=== PATIENT | male | born 1940 | race American Indian/Alaskan Native ===

== ENCOUNTER 2017-10-21 09:23 | Outpatient (CLI) | payer MEDICARE ==
[2017-10-21 10:28] LABS: Blood Urea Nitrogen 17 mg/dL (9-20)
--- NOTE | 2017-10-21 15:12 | Nuclear Medicine Report ---
Bone scan: Prostate cancer. Comparison made to prior exam in April 2013. Following injection of radionuclide whole body imaging is approximately 3 hours. Increased radiotracer is accumulated in the right kidney compared to the left with significant activity in the bladder. There is a relatively good bone to background ratio. There is faint activity identified at the sternomanubrial junction and along the inferior spine unchanged from prior exam. A previously seen focal area of activity at the right T12 costovertebral junction is no longer identified. There is diffuse inhomogeneous uptake of activity in the hemithoraces bilaterally which is similar to the uptake identified on the prior exam. No other significant findings. Impressions: 1. There are no osseous changes to indicate metastatic bone disease. 2. Abnormal pulmonary uptake most likely secondary to the chronic underlying pulmonary disease.
--- NOTE | 2017-10-22 08:26 | Cat Scan Report ---
CT CHEST WITH CONTRAST: HISTORY: Malignant neoplasm of prostate. COMPARISON: 09/12/17 CT chest without contrast. TECHNIQUE: Helical CT in 1.25mm intervals following IV contrast. Sagittal and coronal reformatted images. FINDINGS: Thyroid gland: Normal size. 1 cm left thyroid lobe hypodensity is unchanged and probably represents a cyst. Tracheobronchial tree: Normal. Esophagus: Normal. Heart: Normal. Pericardium: Normal. Mediastinum: No mass or adenopathy is appreciated. Lung [place]: Diffuse bilateral interstitial reticulonodular infiltrates have not significantly changed since 09/12/17. No areas of consolidation have developed. No discrete pulmonary nodule. There has been minimal progression of disease since the CT chest dated 06/29/13. This is most consistent with chronic interstitial lung disease. Considerations include sarcoidosis, pneumoconioses, and other etiologies. Lymphangitic spread of tumor is thought less likely. Pleural Spaces: Normal. Musculoskeletal: The bony structures are demineralized with diffuse degenerative changes throughout the spine. No fracture or suspicious blastic bony lesion is identified. IMPRESSION: No significant change is demonstrated since 09/12/17 exam. There are diffuse bilateral reticular nodular infiltrates most consistent with chronic interstitial lung disease. Please see above. No convincing evidence for metastatic disease to the chest.
--- NOTE | 2017-10-22 08:33 | Cat Scan Report ---
CT ABDOMEN PELVIS WITH CONTRAST: HISTORY: Malignant neoplasm of prostate. COMPARISON: 10/20/16. TECHNIQUE: Helical CT in 1.25mm intervals following IV contrast. Sagittal and coronal reconstructions. FINDINGS: Liver: No hepatic mass or advanced parenchymal disease. Biliary system: Moderate to severe diffuse biliary dilatation is again demonstrated. The common bile duct is dilated up to 1.6 cm in diameter. No obvious mass or calcified gallstone in the common bile duct is identified. This could represent a distal common bile duct stricture or ampullary stenosis. Please correlate with the patient and consider further imaging with ERCP or MRCP. Pancreas: Normal. The pancreatic duct is within normal limits. Spleen: Normal. Kidneys/ureters/bladder: The left kidney and collecting system are within normal limits. There are multiple cysts in the inferior right kidney with the largest measuring 4.0 cm. These appear to represent Bosniak class I and class II cysts. The right ureter and bladder are unremarkable. Adrenal glands: Normal right adrenal gland. Calcifications in the left adrenal gland are identified which could represent previous hemorrhage or other insult. No suspicious mass has developed. This is unchanged. Aorta: Normal. Intestines: There is mild fecal retention. No obvious obstruction, inflammation or mass. Appendix: Not confidently identified, correlate with surgical history. Pelvic viscera: Normal. Ascites: None. Adenopathy: None. Musculoskeletal: The bony structures are demineralized with diffuse degenerative changes particularly throughout the thoracolumbar spine. No compression deformity or malalignment. No suspicious blastic bony lesion. IMPRESSION: No evidence for metastatic disease to the abdomen or pelvis. Diffuse biliary dilatation which is essentially unchanged. Please see above. Right renal cysts, unchanged. Mild fecal retention.
== END 2017-10-21 09:24 | disposition home or self-care (01) ==
LOC: NM 09:23
PROVIDERS: ATTEND Internal Medicine Hematology
DX: C61 Malignant neoplasm of prostate (principal); N28.1 Cyst of kidney, acquired; E27.8 Other specified disorders of adrenal gland; R91.8 Other nonspecific abnormal finding of lung field; K59.00 Constipation, unspecified; M47.895 Other spondylosis, thoracolumbar region
CPT/HCPCS: 36415; 71260; 74177; 78306; 82565; 84520; A9503; Q9967

== ENCOUNTER 2018-12-01 09:14 | Outpatient (CLI) | payer MEDICARE ==
--- NOTE | 2018-12-01 10:45 | Cat Scan Report ---
CT ABDOMEN PELVIS WITHOUT CONTRAST: HISTORY: Malignant neoplasm of prostate. COMPARISON: 03/30/18 CT abdomen pelvis with contrast. TECHNIQUE: Helical CT in 1.25mm intervals without IV contrast. Sagittal and coronal reconstructions. FINDINGS: Lung bases: There are numerous calcified granulomas with mild surrounding scarring at both lung bases. This appears unchanged. Liver: Normal. Biliary system: Diffuse biliary dilatation is again noted and unchanged. A few small gallstones are suspected in the fundus of the gallbladder. Pancreas: Normal. Spleen: Normal. Kidneys/ureters/bladder: Scattered right renal cysts are stable in size and number. No left renal lesion. The collecting systems and bladder are unremarkable. The prostate gland is normal size. Adrenal glands: Normal. Aorta: Normal. Intestines: Within normal limits given no oral contrast was administered. Appendix: Normal. Ascites: None. Adenopathy: None. Musculoskeletal: The bony structures are demineralized with moderate degenerative change. No suspicious bony lesions or fracture is identified. IMPRESSION: No evidence for metastatic disease to the abdomen or pelvis. Chronic granulomatous disease at the lung bases. Diffuse biliary dilatation and mild cholelithiasis which is unchanged.
--- NOTE | 2018-12-01 14:02 | Nuclear Medicine Report ---
BONE SCAN: History: Malignant neoplasm of prostate. Comparison: Bone scan dated 03/30/18. CT abdomen and pelvis without contrast performed the same day. After injection of isotope, gamma camera imaging of the bony system was done. There is mild diffuse pulmonary uptake which is unchanged since the previous exam. This appears to be secondary to chronic granulomatous disease seen on CT. There is a normal uptake of isotope throughout the bony structures without areas of significantly increased or decreased uptake. Normal uptake in the urinary system is seen. IMPRESSION: Negative bone scan. No evidence for bony metastasis. No change since 03/30/18.
== END 2018-12-01 09:15 | disposition home or self-care (01) ==
LOC: NM 09:14 → EDBD 09:14 → NM 09:15
PROVIDERS: ATTEND Urology
DX: C61 Malignant neoplasm of prostate (principal); D71 Functional disorders of polymorphonuclear neutrophils; I25.10 Atherosclerotic heart disease of native coronary artery without angina pectoris; I10 Essential (primary) hypertension; Z72.89 Other problems related to lifestyle
CPT/HCPCS: 74176; 78306; A9503

== ENCOUNTER 2020-04-25 18:05 | Inpatient (IN) | payer MEDICAID, MEDICARE ==
--- NOTE | 2020-04-25 19:04 | Emergency Department Report ---
HPI - General PUI?: Yes Time Seen by Provider: 04/25/20 18:37 - HPI HPI: Room 23 The patient is a 79-year-old male sent from [facility] for hypoxia. EMS transfer forms just states "shortness of breath." The patient does not answer questions. Patient occasionally makes eye contact but does not respond verbally. 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) Hx Tuberculosis: No Additional medical history: prostate CA - Surgical History Past Surgical History?: No - Family History Family history: no significant - Social History Smoking Status: Unknown if ever smoked - Medications Home Medications: Home Medications Medication Instructions Recorded Confirmed Last Taken Type Potassium Chloride [Klor-Con 10] 1 tab PO DAILY 04/14/14 03/30/18 03/29/18 History 10 meq Furosemide [Lasix TAB] 20 mg PO QDAY 09/12/17 03/30/18 03/29/18 History 20 mg lisinopriL [Prinivil] 5 mg PO QDAY 09/12/17 03/30/18 03/29/18 History 5 mg levoFLOXacin [Levaquin TAB] 500 mg PO QDAY #5 tablet 09/16/17 03/30/18 03/29/18 Rx 500 mg Tamsulosin [Flomax] 0.4 mg PO QDAY 03/30/18 03/30/18 03/29/18 History 0.4mg ED Review of Systems ROS: Stated complaint: LOW O2 SATURATION Other details as noted in HPI Comment: Unobtainable due to pts medical conditions (Patient not answering questions) Constitutional: no symptoms reported Respiratory: no symptoms reported Endocrine: no symptoms reported Physical Exam - Physical Exam Vital Signs: Vital Signs 04/25/20 18:44 Pulse Rate 71 Respiratory 16 Rate Blood Pressure 103/60 [Right] O2 Sat by Pulse 96 Oximetry Physical Exam: GENERAL: The patient is well-developed well-nourished male sitting on stretcher not appearing to be in acute distress. Patient does not answer questions HEENT: Normocephalic. Atraumatic. Extraocular motions are intact. Patient has moist mucous membranes. NECK: Supple. Trachea midline CHEST/LUNGS: Clear to auscultation. There is no respiratory distress noted. HEART/CARDIOVASCULAR: Regular. There is no tachycardia. There is no gallop rub or murmur. ABDOMEN: Abdomen is soft, nontender. Patient has normal bowel sounds. There is no abdominal distention. SKIN: There is no rash. There is no edema. There is no diaphoresis. NEURO: The patient is awake and occasionally makes eye contact but does not respond verbally. The patient is not cooperative with neurologic exam. MUSCULOSKELETAL: There is no evidence of acute injury. ED Course Vital Signs 04/25/20 18:44 Pulse Rate 71 Respiratory 16 Rate Blood Pressure 103/60 [Right] O2 Sat by Pulse 96 Oximetry ED Medical Decision Making - Lab Data Result diagrams: 04/25/20 19:17 04/25/20 19:17 Laboratory Tests 04/25/20 04/25/20 04/25/20 19:17 19:17 19:17 WBC 5.1 RBC 3.50 L Hgb 11.7 L Hct 34.5 L MCV 99 H MCH 34 H MCHC 34 RDW 14.0 Plt Count 295 Lymph % (Auto) 13.6 [place] % (Auto) 7.4 H Eos % (Auto) 0.1 Baso % (Auto) 0.2 Lymph # 0.7 L [place] # 0.4 Eos # 0.0 Baso # 0.0 Seg Neutrophils % 78.7 H Seg Neutrophils # 4.0 D-Dimer 7654.83 H Sodium 146 H Potassium 4.1 Chloride 109.3 H Carbon Dioxide 20 L Anion Gap 21 BUN 77 H Creatinine 2.7 H Estimated GFR 28 BUN/Creatinine Ratio 29 Glucose 106 H Calcium 9.7 Ferritin Total Bilirubin 3.40 H AST 74 H ALT 48 Alkaline Phosphatase 610 H Lactate Dehydrogenase Total Creatine Kinase 65 CK-MB (CK-2) 1.4 CK-MB (CK-2) Rel Index 2.1 Troponin T < 0.010 C-Reactive Protein NT-Pro-B Natriuret Pep 244.7 Total Protein 8.2 Albumin 2.8 L Albumin/Globulin Ratio 0.5 04/25/20 04/25/20 19:17 19:17 WBC RBC Hgb Hct MCV MCH MCHC RDW Plt Count Lymph % (Auto) [place] % (Auto) Eos % (Auto) Baso % (Auto) Lymph # [place] # Eos # Baso # Seg Neutrophils % Seg Neutrophils # D-Dimer Sodium Potassium Chloride Carbon Dioxide Anion Gap BUN Creatinine Estimated GFR BUN/Creatinine Ratio Glucose 106 H Calcium Ferritin 658.6 H Total Bilirubin AST ALT Alkaline Phosphatase Lactate Dehydrogenase 421 H Total Creatine Kinase CK-MB (CK-2) CK-MB (CK-2) Rel Index Troponin T C-Reactive Protein 12.40 H NT-Pro-B Natriuret Pep Total Protein Albumin Albumin/Globulin Ratio - Radiology Data Radiology results: report reviewed (Chest x-ray), image reviewed (Chest x-ray) interpreted by me: Chest [id number] diffuse opacities. No pneumothorax. No foreign body seen [facility] [address] [place] [address] XRay Report Signed Patient: MAX HUSTON MR#: [id number] : 1940 A cct:[id number] Age/Sex: 79 / M ADM Date: 04/25/20 Loc: ED Attending Dr: Ordering Physician: POLLY REYNA MD Date of Service: 04/25/20 Procedure(s): XR chest 1V ap Accession Number(s): [id number] cc: POLLY REYNA MD Fluoro Time In Minutes: CHEST 1 VIEW 04/25/2020 8:08 PM INDICATION / CLINICAL INFORMATION: Hypoxia. COMPARISON: CT chest dated 03/30/2018 FINDINGS: SUPPORT DEVICES: None. HEART / MEDIASTINUM: Stable. LUNGS / PLEURA: Diffuse bilateral pulmonary infiltrates are not significantly changed from 2018. No new focal airspace consolidation is identified. No pneumothorax. ADDITIONAL FINDINGS: No significant additional findings. IMPRESSION: Diffuse bilateral pulmonary infiltrates are stable from 2018. No new focal airspace consolidation is seen. Signer Name: David Gorman MD Signed: 04/25/2020 9:23 PM Workstation Name: [id number] Transcribed By: SS Dictated By: DAVID GORMAN Electronically Authenticated By: DAVID GORMAN Signed Date/Time: 04/25/202122 DD/ 19 TD/TT: - Differential Diagnosis Pneumonia, COVID-19, pleural effusion, CHF, pulmonary edema Critical care attestation.: If time is entered above; I have spent that time in minutes in the direct care of this critically ill patient, excluding procedure time. ED Disposition Clinical Impression: Shortness of breath, Suspected COVID-19 virus infection Disposition: DC09 OP ADMIT IP TO THIS HOSP Is pt being admited?: Yes Does the pt Need Aspirin: No Condition: Fair Time of Disposition: 22:40 (Hospitalist notified (Dr Carbajal))
[2020-04-25 20:12] LABS: Basophils % (Auto) 0.2 % (0.0-1.8); Eosinophils % (Auto) 0.1 % (0.0-4.3); Hematocrit 34.5 % (35.5-45.6); Hemoglobin 11.7 gm/dl (11.8-15.2); Lymphocytes # (Auto) 0.7 K/mm3 (1.2-5.4); Lymphocytes % (Auto) 13.6 % (13.4-35.0); Mean Corpuscular HGB Conc 34 % (32-34); Mean Corpuscular Volume 99 fl (84-94); Monocytes # (Auto) 0.4 K/mm3 (0.0-0.8); Monocytes % (Auto) 7.4 % (0.0-7.3); Platelet Count 295 K/mm3 (140-440)
[2020-04-25 20:32] LABS: Creatine Kinase MB 1.4 ng/mL (0.0-4.0)
[2020-04-25 20:35] LABS: Alanine Aminotransferase 48 units/L (7-56); Albumin 2.8 g/dL (3.9-5); BUN/Creatinine Ratio 29; Blood Urea Nitrogen 77 mg/dL (9-20); Calcium 9.7 mg/dL (8.4-10.2); Hemolysis Index 5
[2020-04-25 20:36] LABS: C-Reactive Protein 12.4 mg/dL (0.00-1.30)
--- NOTE | 2020-04-25 21:27 | XRay Report ---
CHEST 1 VIEW 04/25/2020 8:08 PM INDICATION / CLINICAL INFORMATION: Hypoxia. COMPARISON: CT chest dated 03/30/2018 FINDINGS: SUPPORT DEVICES: None. HEART / MEDIASTINUM: Stable. LUNGS / PLEURA: Diffuse bilateral pulmonary infiltrates are not significantly changed from 2018. No n ew focal airspace consolidation is identified. No pneumothorax. ADDITIONAL FINDINGS: No significant additional findings. IMPRESSION: Diffuse bilateral pulmonary infiltrates are stable from 2018. No new focal airspace consolidation is seen. Signer Name: Boris Gorman MD Signed: 04/25/2020 9:23 PM Workstation Name: [id number]
[2020-04-25] MEDS ORDERED: cefTRIAXone/NS 1 GM/50 ML 1 GM/50 ML BAG IV ONE (22:08)
[2020-04-25 22:29] LABS: ABG Base Excess -2.2 mmol/L (-2.0-3.0); ABG HCO3 21.4 mmol/L (20.0-26.0); ABG Methemoglobin 0.4 % (0.0-1.5); ABG Oxygen Saturation 97.7 % (95.0-99.0); ABG PCO2 33.2 mm Hg; ABG PH 7.427 pH Units (7.350-7.450); ABG PO2 99.9 mm Hg (80.0-90.0)
[2020-04-25] MEDS ORDERED: DEXTROSE 50% IN WATER (25GM) 50 ML SYRINGE IV PRN (23:07)
[2020-04-25] MEDS ORDERED: SODIUM CHLORIDE 0.9% 1000 ML 1,000 ML IV SCH (23:15)
[2020-04-26] MEDS: HEPARIN 5,000 UNIT/1 ML VIAL SUB-Q SCH ×3 (00:33→22:23)
[2020-04-26 06:19] LABS: Calcium 9.2 mg/dL (8.4-10.2)
--- NOTE | 2020-04-26 07:19 | History and Physical Report ---
History of Present Illness Date of examination: 04/26/20 Date of admission: 04/25/20 22:13 Chief complaint: SHORTNESS OF BREATH History of present illness: 79 year old male brought from a longterm because of shortness of breath. Patient is non communicative and there was no history of fever, chills, cough, chest pain nausea or vomiting. Patient's evaluation in the Emergency Room shows elevated markers for COVID -19 Past History Past Medical History: diabetes, hypertension, renal failure, seizures, other (CONVERSION DISORDER, PROSTATE CANCER) Past Surgical History: No surgical history Social history: no significant social history Family history: no significant family history Medications and Allergies Allergies Allergy/AdvReac Type Severity Reaction Status Date / Time No Known Allergies Allergy Verified 04/14/14 11:39 Home Medications Medication Instructions Recorded Confirmed Last Taken Type Potassium Chloride [Klor-Con 10] 1 tab PO DAILY 04/14/14 03/30/18 03/29/18 History 10 meq Furosemide [Lasix TAB] 20 mg PO QDAY 09/12/17 03/30/18 03/29/18 History 20 mg lisinopriL [Prinivil] 5 mg PO QDAY 09/12/17 03/30/18 03/29/18 History 5 mg levoFLOXacin [Levaquin TAB] 500 mg PO QDAY #5 tablet 09/16/17 03/30/18 03/29/18 Rx 500 mg Tamsulosin [Flomax] 0.4 mg PO QDAY 03/30/18 03/30/18 03/29/18 History 0.4mg Active Meds: Active Medications Dextrose (D50w (25gm) Syringe) 0 ml IV Q30MIN PRN; Protocol PRN Reason: Hypoglycemia Heparin Sodium (Porcine) (Heparin) 5,000 unit SUB-Q Q12HR PAOLA Last Admin: 04/26/20 00:33 Dose: 5,000 unit Documented by: Sodium Chloride (Nacl 0.9% 1000 Ml) 1,000 mls @ 75 mls/hr IV DIRECT PAOLA Last Admin: 04/26/20 00:32 Dose: 75 mls/hr Documented by: Insulin Human Lispro (Humalog) 0 unit SUB-Q ACHS PAOLA; Protocol Review of Systems Constitutional: weakness, no weight loss, no weight gain, no fever, no chills, no sweats, no night sweats, no anorexia, no fatigue, no malaise, no lethargy Eyes: bilateral: other (NOM BILATERAL EYE SYMPTOMS) Ears, nose, mouth and throat: no ear pain, no ear discharge, no sore throat, no headache, no vertigo Cardiovascular: shortness of breath, no chest pain, no palpitations, no rapid/irregular heart beat, no syncope, no lightheadedness Respiratory: shortness of breath, no cough, no cough with sputum, no dyspnea on exertion, no congestion, no wheezing, no pleurisy, no pain, no pain on inspiration, no respiratory infections Gastrointestinal: no abdominal pain, no nausea, no vomiting, no diarrhea, no constipation, no change in bowel habits, no hematemesis, no early satiety, no heartburn, no indigestion Genitourinary Male: erectile dysfunction, no hematuria, no flank pain, no discharge, no urinary frequency, no urinary hesitancy, no nocturia, no incontinence Rectal: no pain Musculoskeletal: no neck stiffness, no neck pain, no shooting arm pain, no arm numbness/tingling, no low back pain, no shooting leg pain, no leg numbness/tingling, no morning stiffness, no muscle weakness, no muscle cramps, no myalgias, no atrophy Integumentary: no rash, no pruritis, no redness, no sores, no wounds, no jaundice, no boils, no growths, no depigmentation, no dryness, no hirsutism Neurological: no head injury, no paralysis, no weakness, no parathesias, no numbness, no tingling, no seizures, no vertigo, no headaches, no migraines, no change in speech, no change in mentation, no confusion Psychiatric: no anxiety, no depression Endocrine: no polyphagia, no polyuria, no nocturia, no excessive sweating Hematologic/Lymphatic: no easy bruising, no easy bleeding Exam - Constitutional Vitals: Temp Pulse Resp BP Pulse Ox 97.5 F L 90 16 93/47 90 04/26/20 06:20 04/26/20 06:20 04/26/20 06:20 04/26/20 06:20 04/26/20 06:20 General appearance: Present: no acute distress - EENT Eyes: Present: PERRL, EOM intact ENT: hearing intact - Neck Neck: Present: supple, normal ROM - Respiratory Respiratory effort: normal - Extremities Extremities: no ischemia, No edema - Abdominal General gastrointestinal: Present: soft, non-tender, non-distended. Absent: tender, distended, rigid, mass Male genitourinary: Present: deferred - Rectal Rectal Exam: deferred - Integumentary Integumentary: Present: clear, warm, dry - Musculoskeletal Musculoskeletal: strength equal bilaterally - Psychiatric Psychiatric: appropriate mood/affect HEART Score - HEART Score Risk factors: 1-2 risk factors Troponin: Troponin T < 0.010 ng/mL (0.00-0.029) 04/25/20 19:17 Troponin: < normal limit - Critical Actions Critical Actions: 0-3 pts:0.9-1.7%risk of adverse cardiac event.Candidate for discharge Results - Labs CBC & Chem 7: 04/25/20 19:17 04/26/20 05:11 Labs: Laboratory Last Values WBC 5.1 K/mm3 (4.5-11.0) 04/25/20 19:17 RBC 3.50 M/mm3 (3.65-5.03) L 04/25/20 19:17 Hgb 11.7 gm/dl (11.8-15.2) L 04/25/20 19:17 Hct 34.5 % (35.5-45.6) L 04/25/20 19:17 MCV 99 fl (84-94) H 04/25/20 19:17 MCH 34 pg (28-32) H 04/25/20 19:17 MCHC 34 % (32-34) 04/25/20 19:17 RDW 14.0 % (13.2-15.2) 04/25/20 19:17 Plt Count 295 K/mm3 (140-440) 04/25/20 19:17 Lymph % (Auto) 13.6 % (13.4-35.0) 04/25/20 19:17 [place] % (Auto) 7.4 % (0.0-7.3) H 04/25/20 19:17 Eos % (Auto) 0.1 % (0.0-4.3) 04/25/20 19:17 Baso % (Auto) 0.2 % (0.0-1.8) 04/25/20 19:17 Lymph # 0.7 K/mm3 (1.2-5.4) L 04/25/20 19:17 [place] # 0.4 K/mm3 (0.0-0.8) 04/25/20 19:17 Eos # 0.0 K/mm3 (0.0-0.4) 04/25/20 19:17 Baso # 0.0 K/mm3 (0.0-0.1) 04/25/20 19:17 Seg Neutrophils % 78.7 % (40.0-70.0) H 04/25/20 19:17 Seg Neutrophils # 4.0 K/mm3 (1.8-7.7) 04/25/20 19:17 D-Dimer 7654.83 ng/mlDDU (0-234) H 04/25/20 19:17 ABG pH 7.427 pH Units (7.350-7.450) 04/25/20 22:00 ABG pCO2 33.2 mm Hg 04/25/20 22:00 ABG pO2 99.9 mm Hg (80.0-90.0) H 04/25/20 22:00 ABG HCO3 21.4 mmol/L (20.0-26.0) 04/25/20 22:00 ABG O2 Saturation 97.7 % (95.0-99.0) 04/25/20 22:00 ABG O2 Content 17.1 (0.0-44) 04/25/20 22:00 ABG Base Excess -2.2 mmol/L (-2.0-3.0) L 04/25/20 22:00 ABG Hemoglobin 12.6 gm/dl (14.0-18.0) L 04/25/20 22:00 ABG Carboxyhemoglobin 1.7 % (0.0-5.0) 04/25/20 22:00 ABG Methemoglobin 0.4 % (0.0-1.5) 04/25/20 22:00 Oxyhemoglobin 95.6 % (95.0-99.0) 04/25/20 22:00 FiO2 21 % 04/25/20 22:00 Sodium 150 mmol/L (137-145) H 04/26/20 05:11 Potassium 3.7 mmol/L (3.6-5.0) 04/26/20 05:11 Chloride 113.1 mmol/L (98-107) H 04/26/20 05:11 Carbon Dioxide 23 mmol/L (22-30) 04/26/20 05:11 Anion Gap 18 mmol/L 04/26/20 05:11 BUN 74 mg/dL (9-20) H 04/26/20 05:11 Creatinine 2.0 mg/dL (0.8-1.3) H 04/26/20 05:11 Estimated GFR 39 ml/min 04/26/20 05:11 BUN/Creatinine Ratio 37 % 04/26/20 05:11 Glucose 106 mg/dL (75-100) H 04/26/20 05:11 Calcium 9.2 mg/dL (8.4-10.2) 04/26/20 05:11 Ferritin 658.6 ng/mL (30.0-300.0) H 04/25/20 19:17 Total Bilirubin 3.40 mg/dL (0.1-1.2) H 04/25/20 19:17 AST 74 units/L (5-40) H 04/25/20 19:17 ALT 48 units/L (7-56) 04/25/20 19:17 Alkaline Phosphatase 610 units/L (35-129) H 04/25/20 19:17 Lactate Dehydrogenase 421 units/L (91-180) H 04/25/20 19:17 Total Creatine Kinase 65 units/L (55-170) 04/25/20 19:17 CK-MB (CK-2) 1.4 ng/mL (0.0-4.0) 04/25/20 19:17 CK-MB (CK-2) Rel Index 2.1 (0-4) 04/25/20 19:17 Troponin T < 0.010 ng/mL (0.00-0.029) 04/25/20 19:17 C-Reactive Protein 12.40 mg/dL (0.00-1.30) H 04/25/20 19:17 NT-Pro-B Natriuret Pep 244.7 pg/mL (0-900) 04/25/20 19:17 Total Protein 8.2 g/dL (6.3-8.2) 04/25/20 19:17 Albumin 2.8 g/dL (3.9-5) L 04/25/20 19:17 Albumin/Globulin Ratio 0.5 % 04/25/20 19:17 Microbiology: Microbiology 04/25/20 19:31 Peripheral/Venous Blood Culture - Preliminary Culture in Progress 04/25/20 19:17 Peripheral/Venous Blood Culture - Preliminary Culture in Progress Mendoza/IV: Voiding Method Incontinent IV Catheter Type [Right INT / Saline Lock Forearm] Assessment and Plan - Patient Problems (1) Hypoxia Current Visit: Yes Status: Acute Plan to address problem: 1. OXYGEN BY NASAL CANNULA 2. ALBUTEROL NEBULIZER PRN SOB (2) Suspected COVID-19 virus infection Current Visit: Yes Status: Acute Plan to address problem: 1 COVID -19 TESTING 2. DROPLET AND CONTACT ISOLATION (3) Renal insufficiency Current Visit: No Status: Acute Plan to address problem: 1. BMP 2. NEPHROLOGY CONSULT 3. I.V FLUID
[2020-04-26] MEDS ORDERED: ALBUTEROL 2.5 MG/3 ML NEBU IH PRN (07:30)
[2020-04-26] MEDS ORDERED: INSULIN REGULAR, HUMAN 100 UNIT/ML 3ML VIAL SUB-Q SCH (07:30)
--- NOTE | 2020-04-26 08:29 | Progress Note ---
Assessment and Plan Assessment and plan: --COVID-19 test negative --Bilateral pneumonia: Empiric antibiotics, follow cultures --Hypotension; Rigorous IV hydration Increase oral intake If no improvement will try Midrin --Type 2 diabetes mellitus; Accu-Chek sliding scale coverage ADA diet and insulin as needed --Acute kidney injury; Vasomotor nephropathy Gentle hydration, monitor renal function Avoid nephrotoxins, nephrology consult if needed --Severe protein calorie malnutrition; cachexia Patient supplements, nutrition consult --Hypernatremia: Probably severe dehydration Change IV fluids from normal saline to D5W Closely monitor electrolytes --DVT prophylaxis; Heparin We will closely monitor the patient and adjust management as needed Plan of care reviewed with the patient and his nurse History Interval history: I have seen and examined the patient at the bedside today Isolation precautions PPE protocols observed Patient looks ill in mild distress Vital signs noted Hospitalist Physical - Constitutional Vitals: Temp Pulse Resp BP Pulse Ox 97.5 F L 90 16 93/47 90 04/26/20 06:20 04/26/20 06:20 04/26/20 06:20 04/26/20 06:20 04/26/20 06:20 General appearance: Present: mild distress, cachectic, disheveled - EENT Eyes: Present: PERRL, EOM intact - Neck Neck: Present: supple, normal ROM - Respiratory Respiratory effort: normal Respiratory: bilateral: diminished, rhonchi, negative: rales, wheezing - Cardiovascular Rhythm: regular Heart Sounds: Present: S1 & S2 - Extremities Extremities: no ischemia, No edema - Abdominal General gastrointestinal: soft, non-tender, non-distended, normal bowel sounds - Integumentary Integumentary: Present: clear, warm - Psychiatric Psychiatric: other (Confused) - Neurologic Neurologic: moves all extremities, other (Minimally communicative) HEART Score - HEART Score Risk factors: 1-2 risk factors Troponin: Troponin T < 0.010 ng/mL (0.00-0.029) 04/25/20 19:17 Troponin: < normal limit - Critical Actions Critical Actions: 0-3 pts:0.9-1.7%risk of adverse cardiac event.Candidate for discharge Results - Labs CBC & Chem 7: 04/25/20 19:17 04/26/20 05:11 Labs: Laboratory Last Values WBC 5.1 K/mm3 (4.5-11.0) 04/25/20 19:17 RBC 3.50 M/mm3 (3.65-5.03) L 04/25/20 19:17 Hgb 11.7 gm/dl (11.8-15.2) L 04/25/20 19:17 Hct 34.5 % (35.5-45.6) L 04/25/20 19:17 MCV 99 fl (84-94) H 04/25/20 19:17 MCH 34 pg (28-32) H 04/25/20 19:17 MCHC 34 % (32-34) 04/25/20 19:17 RDW 14.0 % (13.2-15.2) 04/25/20 19:17 Plt Count 295 K/mm3 (140-440) 04/25/20 19:17 Lymph % (Auto) 13.6 % (13.4-35.0) 04/25/20 19:17 [place] % (Auto) 7.4 % (0.0-7.3) H 04/25/20 19:17 Eos % (Auto) 0.1 % (0.0-4.3) 04/25/20 19:17 Baso % (Auto) 0.2 % (0.0-1.8) 04/25/20 19:17 Lymph # 0.7 K/mm3 (1.2-5.4) L 04/25/20 19:17 [place] # 0.4 K/mm3 (0.0-0.8) 04/25/20 19:17 Eos # 0.0 K/mm3 (0.0-0.4) 04/25/20 19:17 Baso # 0.0 K/mm3 (0.0-0.1) 04/25/20 19:17 Seg Neutrophils % 78.7 % (40.0-70.0) H 04/25/20 19:17 Seg Neutrophils # 4.0 K/mm3 (1.8-7.7) 04/25/20 19:17 D-Dimer 7654.83 ng/mlDDU (0-234) H 04/25/20 19:17 ABG pH 7.427 pH Units (7.350-7.450) 04/25/20 22:00 ABG pCO2 33.2 mm Hg 04/25/20 22:00 ABG pO2 99.9 mm Hg (80.0-90.0) H 04/25/20 22:00 ABG HCO3 21.4 mmol/L (20.0-26.0) 04/25/20 22:00 ABG O2 Saturation 97.7 % (95.0-99.0) 04/25/20 22:00 ABG O2 Content 17.1 (0.0-44) 04/25/20 22:00 ABG Base Excess -2.2 mmol/L (-2.0-3.0) L 04/25/20 22:00 ABG Hemoglobin 12.6 gm/dl (14.0-18.0) L 04/25/20 22:00 ABG Carboxyhemoglobin 1.7 % (0.0-5.0) 04/25/20 22:00 ABG Methemoglobin 0.4 % (0.0-1.5) 04/25/20 22:00 Oxyhemoglobin 95.6 % (95.0-99.0) 04/25/20 22:00 FiO2 21 % 04/25/20 22:00 Sodium 150 mmol/L (137-145) H 04/26/20 05:11 Potassium 3.7 mmol/L (3.6-5.0) 04/26/20 05:11 Chloride 113.1 mmol/L (98-107) H 04/26/20 05:11 Carbon Dioxide 23 mmol/L (22-30) 04/26/20 05:11 Anion Gap 18 mmol/L 04/26/20 05:11 BUN 74 mg/dL (9-20) H 04/26/20 05:11 Creatinine 2.0 mg/dL (0.8-1.3) H 04/26/20 05:11 Estimated GFR 39 ml/min 04/26/20 05:11 BUN/Creatinine Ratio 37 % 04/26/20 05:11 Glucose 106 mg/dL (75-100) H 04/26/20 05:11 POC Glucose 106 (70-105) H 04/26/20 08:00 Calcium 9.2 mg/dL (8.4-10.2) 04/26/20 05:11 Ferritin 658.6 ng/mL (30.0-300.0) H 04/25/20 19:17 Total Bilirubin 3.40 mg/dL (0.1-1.2) H 04/25/20 19:17 AST 74 units/L (5-40) H 04/25/20 19:17 ALT 48 units/L (7-56) 04/25/20 19:17 Alkaline Phosphatase 610 units/L (35-129) H 04/25/20 19:17 Lactate Dehydrogenase 421 units/L (91-180) H 04/25/20 19:17 Total Creatine Kinase 65 units/L (55-170) 04/25/20 19:17 CK-MB (CK-2) 1.4 ng/mL (0.0-4.0) 04/25/20 19:17 CK-MB (CK-2) Rel Index 2.1 (0-4) 04/25/20 19:17 Troponin T < 0.010 ng/mL (0.00-0.029) 04/25/20 19:17 C-Reactive Protein 12.40 mg/dL (0.00-1.30) H 04/25/20 19:17 NT-Pro-B Natriuret Pep 244.7 pg/mL (0-900) 04/25/20 19:17 Total Protein 8.2 g/dL (6.3-8.2) 04/25/20 19:17 Albumin 2.8 g/dL (3.9-5) L 04/25/20 19:17 Albumin/Globulin Ratio 0.5 % 04/25/20 19:17 Microbiology: Microbiology 04/25/20 19:31 Peripheral/Venous Blood Culture - Preliminary Culture in Progress 04/25/20 19:17 Peripheral/Venous Blood Culture - Preliminary Culture in Progress Mendoza/IV: Voiding Method Incontinent IV Catheter Type [Right INT / Saline Lock Forearm] Active Medications - Current Medications Current Medications: Generic Name Dose Route Start Last Admin Trade Name Freq PRN Reason Stop Dose Admin Albuterol 2.5 mg 04/26/20 07:30 Proventil IH Q4HRT PRN Shortness Of Breath Dextrose 0 ml 04/25/20 23:07 D50w (25gm) Syringe IV Q30MIN PRN Hypoglycemia Protocol Heparin Sodium (Porcine) 5,000 unit 04/25/20 23:00 04/26/20 00:33 Heparin SUB-Q 5,000 unit Q12HR PAOLA Administration Sodium Chloride 1,000 mls @ 75 mls/hr 04/25/20 23:15 04/26/20 00:32 Nacl 0.9% 1000 Ml IV 75 mls/hr DIRECT PAOLA Administration Insulin Human Lispro 0 unit 04/26/20 07:30 Humalog SUB-Q ACHS PAOLA Protocol
[2020-04-26] MEDS: INSULIN LISPRO 100 UNIT/ML VIAL 3 mL SUB-Q SCH ×4 (10:17→23:51)
--- NOTE | 2020-04-26 10:21 | Consultation ---
History of Present Illness - Reason for Consult Consult date: 04/26/20 acute renal failure - History of Present Illness 79 year old male brought [facility] a [facility] because of shortness of breath. Patient is non communicative and there was no history of fever, chills, cough, chest pain nausea or vomiting. Patient's evaluation in the Emergency Room shows elevated markers for COVID -19. currently on isolation, chart reviewed he was found to have elevated Cr and hypernatremia and renal consult was requested Past History Past Medical History: diabetes, hypertension, renal failure, seizures, other (CONVERSION DISORDER, PROSTATE CANCER) Past Surgical History: No surgical history Social history: no significant social history Family history: no significant family history Medications and Allergies Allergies Allergy/AdvReac Type Severity Reaction Status Date / Time No Known Allergies Allergy Verified 04/14/14 11:39 Home Medications Medication Instructions Recorded Confirmed Last Taken Type Potassium Chloride [Klor-Con 10] 1 tab PO DAILY 04/14/14 03/30/18 03/29/18 History 10 meq Furosemide [Lasix TAB] 20 mg PO QDAY 09/12/17 03/30/18 03/29/18 History 20 mg lisinopriL [Prinivil] 5 mg PO QDAY 09/12/17 03/30/18 03/29/18 History 5 mg levoFLOXacin [Levaquin TAB] 500 mg PO QDAY #5 tablet 09/16/17 03/30/18 03/29/18 Rx 500 mg Tamsulosin [Flomax] 0.4 mg PO QDAY 03/30/18 03/30/18 03/29/18 History 0.4mg Active Meds: Active Medications Albuterol (Proventil) 2.5 mg IH Q4HRT PRN PRN Reason: Shortness Of Breath Dextrose (D50w (25gm) Syringe) 0 ml IV Q30MIN PRN; Protocol PRN Reason: Hypoglycemia Heparin Sodium (Porcine) (Heparin) 5,000 unit SUB-Q Q12HR PAOLA Last Admin: 04/26/20 00:33 Dose: 5,000 unit Documented by: Sodium Chloride (Nacl 0.9% 1000 Ml) 1,000 mls @ 75 mls/hr IV DIRECT PAOLA Last Admin: 04/26/20 00:32 Dose: 75 mls/hr Documented by: Insulin Human Lispro (Humalog) 0 unit SUB-Q ACHS PAOLA; Protocol Review of Systems All systems: negative (worsening of SOB) Exam - Vital Signs Vital signs: Vital Signs Pulse Resp BP Pulse Ox 71 16 103/60 96 04/25/20 18:44 04/25/20 18:44 04/25/20 18:44 04/25/20 18:44 Results - Lab Results 04/25/20 19:17 04/26/20 05:11 Most recent lab results ABG pH 7.427 pH Units (7.350-7.450) 04/25/20 22:00 ABG pCO2 33.2 mm Hg 04/25/20 22:00 ABG pO2 99.9 mm Hg (80.0-90.0) H 04/25/20 22:00 ABG HCO3 21.4 mmol/L (20.0-26.0) 04/25/20 22:00 ABG O2 Saturation 97.7 % (95.0-99.0) 04/25/20 22:00 Calcium 9.2 mg/dL (8.4-10.2) 04/26/20 05:11 Assessment and Plan Hypoxia COVID-19 rule out acute renal failure appears to be secondary to prerenal azotemia Hypernatremia Cr is trending down, will switch IVF to 1/2 NS 125 cc/h for worsening hypernatremia urine lytes, protein and eos ordered renal US ordered renally dose meds strict I&O daily weight Avoid nephrotoxins Griffin Lockwood MD please call me if you have any questions [phone]
[2020-04-26] MEDS ORDERED: SODIUM CHLORIDE 0.45% 1000 ML 1,000 ML IV SCH (11:00)
--- NOTE | 2020-04-26 15:55 | Consultation ---
History of Present Illness - Reason for Consult Consult date: 04/26/20 - History of Present Illness 79-year-old man past medical history diabetes, hypertension, CKD, prostate cancer admitted from his longterm due to shortness of breath. Patient is baseline noncommunicative, especially history is obtained from the chart. Afebrile with a normal white count. COVID-19 testing negative. No cultures available for review. Procalcitonin elevated at 2.77. Imaging personally reviewed: Chest x-ray: Diffuse bilateral infiltrates stable from 2018. Past History Past Medical History: diabetes, hypertension, renal failure, seizures, other (CONVERSION DISORDER, PROSTATE CANCER) Past Surgical History: No surgical history Social history: no significant social history Family history: no significant family history Medications and Allergies Allergies Allergy/AdvReac Type Severity Reaction Status Date / Time No Known Allergies Allergy Verified 04/14/14 11:39 Home Medications Medication Instructions Recorded Confirmed Last Taken Type Potassium Chloride [Klor-Con 10] 1 tab PO DAILY 04/14/14 03/30/18 03/29/18 History 10 meq Furosemide [Lasix TAB] 20 mg PO QDAY 09/12/17 03/30/18 03/29/18 History 20 mg lisinopriL [Prinivil] 5 mg PO QDAY 09/12/17 03/30/18 03/29/18 History 5 mg levoFLOXacin [Levaquin TAB] 500 mg PO QDAY #5 tablet 09/16/17 03/30/18 03/29/18 Rx 500 mg Tamsulosin [Flomax] 0.4 mg PO QDAY 03/30/18 03/30/18 03/29/18 History 0.4mg Active Meds: Active Medications Albuterol (Proventil) 2.5 mg IH Q4HRT PRN PRN Reason: Shortness Of Breath Dextrose (D50w (25gm) Syringe) 0 ml IV Q30MIN PRN; Protocol PRN Reason: Hypoglycemia Heparin Sodium (Porcine) (Heparin) 5,000 unit SUB-Q Q12HR PAOLA Last Admin: 04/26/20 10:23 Dose: 5,000 unit Documented by: Sodium Chloride (Nacl 0.45% 1000 Ml) 1,000 mls @ 125 mls/hr IV DIRECT PAOLA Last Admin: 04/26/20 14:00 Dose: 125 mls/hr Documented by: Insulin Human Lispro (Humalog) 0 unit SUB-Q [facility]; Protocol Last Admin: 04/26/20 13:59 Dose: Not Given Documented by: Review of Systems ROS unobtainable: due to mental status Physical Examination - Physical Exam Narrative exam: Physical Exam: Constitutional: Noncommunicative, short of breath, stable Head, Ears, Nose: Normocephalic, atraumatic. External ears, nose normal Eyes: Conjunctivae/corneas clear. No icterus. No ptosis. Neck: Supple, no meningeal signs Oral: dentition fair, no thrush Cardiovascular: S1, S2 normal. Respiratory: Good air entry, clear to auscultation bilaterally GI: Soft, non-tender; bowel sounds normal. No peritoneal signs. Musculoskeletal: No pedal edema, no cyanosis. Skin: No rash or abscess Hem/Lymphatic: No palpable cervical or supraclavicular nodes. No lymphangitis Psych: Nonverbal Neurological: Nonverbal - Constitutional Vitals: Vital Signs Temp Pulse Resp BP Pulse Ox 97.9 F 91 H 18 86/46 91 04/26/20 11:27 04/26/20 11:03 04/26/20 11:27 04/26/20 11:27 04/26/20 11:27 Temperature -Last 24 Hours Temperature 97.9 F Temperature 98.5 F Temperature 97.5 F Temperature 98.3 F Results - Labs CBC & Chem 7: 04/25/20 19:17 04/26/20 05:11 Labs: Abnormal lab results 04/25/20 04/25/20 04/25/20 Range/Units 19:17 19:17 19:17 RBC 3.50 L (3.65-5.03) M/mm3 Hgb 11.7 L (11.8-15.2) gm/dl Hct 34.5 L (35.5-45.6) % MCV 99 H (84-94) fl MCH 34 H (28-32) pg [place] % (Auto) 7.4 H (0.0-7.3) % Lymph # 0.7 L (1.2-5.4) K/mm3 Seg Neutrophils % 78.7 H (40.0-70.0) % D-Dimer 7654.83 H (0-234) ng/mlDDU ABG pO2 (80.0-90.0) mm Hg ABG Base Excess (-2.0-3.0) mmol/L ABG Hemoglobin (14.0-18.0) gm/dl Sodium 146 H (137-145) mmol/L Chloride 109.3 H (98-107) mmol/L Carbon Dioxide 20 L (22-30) mmol/L BUN 77 H (9-20) mg/dL Creatinine 2.7 H (0.8-1.3) mg/dL Glucose 106 H (75-100) mg/dL POC Glucose (70-105) Ferritin (30.0-300.0) ng/mL Total Bilirubin 3.40 H (0.1-1.2) mg/dL AST 74 H (5-40) units/L Alkaline Phosphatase 610 H (35-129) units/L Lactate Dehydrogenase (91-180) units/L C-Reactive Protein (0.00-1.30) mg/dL Albumin 2.8 L (3.9-5) g/dL 04/25/20 04/25/20 04/25/20 Range/Units 19:17 19:17 22:00 RBC (3.65-5.03) M/mm3 Hgb (11.8-15.2) gm/dl Hct (35.5-45.6) % MCV (84-94) fl MCH (28-32) pg [place] % (Auto) (0.0-7.3) % Lymph # (1.2-5.4) K/mm3 Seg Neutrophils % (40.0-70.0) % D-Dimer (0-234) ng/mlDDU ABG pO2 99.9 H (80.0-90.0) mm Hg ABG Base Excess -2.2 L (-2.0-3.0) mmol/L ABG Hemoglobin 12.6 L (14.0-18.0) gm/dl Sodium (137-145) mmol/L Chloride (98-107) mmol/L Carbon Dioxide (22-30) mmol/L BUN (9-20) mg/dL Creatinine (0.8-1.3) mg/dL Glucose 106 H (75-100) mg/dL POC Glucose (70-105) Ferritin 658.6 H (30.0-300.0) ng/mL Total Bilirubin (0.1-1.2) mg/dL AST (5-40) units/L Alkaline Phosphatase (35-129) units/L Lactate Dehydrogenase 421 H (91-180) units/L C-Reactive Protein 12.40 H (0.00-1.30) mg/dL Albumin (3.9-5) g/dL 04/26/20 04/26/20 04/26/20 Range/Units 05:11 08:00 11:41 RBC (3.65-5.03) M/mm3 Hgb (11.8-15.2) gm/dl Hct (35.5-45.6) % MCV (84-94) fl MCH (28-32) pg [place] % (Auto) (0.0-7.3) % Lymph # (1.2-5.4) K/mm3 Seg Neutrophils % (40.0-70.0) % D-Dimer (0-234) ng/mlDDU ABG pO2 (80.0-90.0) mm Hg ABG Base Excess (-2.0-3.0) mmol/L ABG Hemoglobin (14.0-18.0) gm/dl Sodium 150 H (137-145) mmol/L Chloride 113.1 H (98-107) mmol/L Carbon Dioxide (22-30) mmol/L BUN 74 H (9-20) mg/dL Creatinine 2.0 H (0.8-1.3) mg/dL Glucose 106 H (75-100) mg/dL POC Glucose 106 H 112 H (70-105) Ferritin (30.0-300.0) ng/mL Total Bilirubin (0.1-1.2) mg/dL AST (5-40) units/L Alkaline Phosphatase (35-129) units/L Lactate Dehydrogenase (91-180) units/L C-Reactive Protein (0.00-1.30) mg/dL Albumin (3.9-5) g/dL Assessment and Plan Cultures: Blood culture 04/25/2020 pending COVID-19 negative A/P: 79-year-old man past medical history diabetes, hypertension, CKD, prostate cancer admitted with shortness of breath. #Bilateral pneumonia: Infiltrate stable from 2 years ago, however may have resolved and then returned or may have chronic infiltrates in the lungs. His procalcitonin is elevated, however he does have a level of chronic kidney disease. COVID testing is negative, as such would recommend treating empirically with antibiotics. #JOSE on CKD: Renally dose antibiotics #Diabetes: tight glycemic control for best outcomes. Recs: -Start ceftriaxone and azithromycin. Recommend 5 and 3 days respectively. -Can trend procalcitonin every few days to monitor for improvement. Thank you for the consult, we will continue to follow. Alli Alejo MD [facility] M: [phone] O: [phone] F: [phone]
[2020-04-26] MEDS ORDERED: cefTRIAXone/NS 2 GM/100 ML 2 GM/100 ML BAG IV SCH (16:00)
[2020-04-26 16:05] LABS: Bacteria,Urine 1+ /HPF (Negative); Bilirubin,Urine NEG (Negative); Blood,Urine MOD (Negative); Color,Urine Yellow (Yellow); Mucus,Urine FEW /HPF; Protein,Urine <15 mg/dL mg/dL (Negative); Urobilinogen,Urine < 2.0 mg/dL (<2.0)
[2020-04-26 16:08] LABS: Creatinine,Urine 73.5 mg/dL (0.1-20.0)
[2020-04-26 16:13] LABS: Creatinine,Urine 72.7 mg/dL (0.1-20.0); Protein/Creatinine Ratio,Urine 0.65
[2020-04-26] MEDS: AZITHROMYCIN 500 MG in SODIUM CHLORIDE 0.9% 250ML 250 ML IV SCH (17:59)
[2020-04-26] MEDS: DEXTROSE 5% IN WATER 1,000 ML IV SCH (22:47)
[2020-04-27] MEDS: DEXTROSE 5% IN WATER 1,000 ML IV SCH (06:32)
[2020-04-27] MEDS: INSULIN LISPRO 100 UNIT/ML VIAL 3 mL SUB-Q SCH ×4 (09:00→23:14)
[2020-04-27] MEDS: cefTRIAXone/NS 1 GM/50 ML 1 GM/50 ML BAG IV SCH (10:17)
[2020-04-27] MEDS: HEPARIN 5,000 UNIT/1 ML VIAL SUB-Q SCH ×2 (10:17→22:16)
--- NOTE | 2020-04-27 10:40 | Progress Note ---
Assessment and Plan Assessment and plan: --COVID-19 test negative 04/26/2020 --Hypokalemia/hypophosphatemia; Replenished with potassium phosphate IV Monitor electrolytes --Dysphagia/failed bedside swallow Will check speech and swallow evaluation Meanwhile we will start tube feeding Dobbhoff placement for tube feeds and medications Closely monitor, nutrition consult --Bilateral pneumonia: Empiric antibiotics, follow cultures ID following --Hypotension; Rigorous IV hydration Increase oral intake If no improvement will try Midrin --Type 2 diabetes mellitus; Accu-Chek sliding scale coverage ADA diet and insulin as needed --Acute kidney injury; Vasomotor nephropathy Gentle hydration, monitor renal function Avoid nephrotoxins, nephrology consult if needed --Severe protein calorie malnutrition; cachexia Patient supplements, nutrition consult --Hypernatremia: Probably severe dehydration Change IV fluids from normal saline to D5W Closely monitor electrolytes --DVT prophylaxis;Heparin We will closely monitor the patient and adjust management as needed Plan of care reviewed with the patient and his nurse History Interval history: I have seen and examined the patient at the bedside this morning Patient's chart and medications reviewed Patient is severely dehydrated emaciated Cachectic and malnourished Minimally communicative Has multiple electrolyte abnormalities Bedside swallow, patient has some cough Vital signs noted Hospitalist Physical - Constitutional Vitals: Temp Pulse Resp BP Pulse Ox 98.6 F 107 H 18 137/92 97 04/26/20 22:47 04/26/20 22:47 04/26/20 22:47 04/26/20 22:47 04/26/20 22:47 General appearance: Present: mild distress, cachectic, disheveled - EENT Eyes: Present: PERRL, EOM intact - Neck Neck: Present: supple, normal ROM - Respiratory Respiratory effort: normal Respiratory: bilateral: diminished, negative: rales, rhonchi, wheezing - Cardiovascular Rhythm: regular Heart Sounds: Present: S1 & S2 - Extremities Extremities: no ischemia, No edema - Abdominal General gastrointestinal: soft, non-tender, non-distended - Integumentary Integumentary: Present: clear, warm - Psychiatric Psychiatric: other (Confused at times) - Neurologic Neurologic: moves all extremities HEART Score - HEART Score Risk factors: 1-2 risk factors Troponin: Troponin T < 0.010 ng/mL (0.00-0.029) 04/25/20 19:17 Troponin: < normal limit - Critical Actions Critical Actions: 0-3 pts:0.9-1.7%risk of adverse cardiac event.Candidate for discharge Results - Labs CBC & Chem 7: 04/27/20 10:35 04/27/20 10:35 Labs: Laboratory Last Values WBC 5.1 K/mm3 (4.5-11.0) 04/25/20 19:17 RBC 3.50 M/mm3 (3.65-5.03) L 04/25/20 19:17 Hgb 11.7 gm/dl (11.8-15.2) L 04/25/20 19:17 Hct 34.5 % (35.5-45.6) L 04/25/20 19:17 MCV 99 fl (84-94) H 04/25/20 19:17 MCH 34 pg (28-32) H 04/25/20 19:17 MCHC 34 % (32-34) 04/25/20 19:17 RDW 14.0 % (13.2-15.2) 04/25/20 19:17 Plt Count 295 K/mm3 (140-440) 04/25/20 19:17 Lymph % (Auto) 13.6 % (13.4-35.0) 04/25/20 19:17 [place] % (Auto) 7.4 % (0.0-7.3) H 04/25/20 19:17 Eos % (Auto) 0.1 % (0.0-4.3) 04/25/20 19:17 Baso % (Auto) 0.2 % (0.0-1.8) 04/25/20 19:17 Lymph # 0.7 K/mm3 (1.2-5.4) L 04/25/20 19:17 [place] # 0.4 K/mm3 (0.0-0.8) 04/25/20 19:17 Eos # 0.0 K/mm3 (0.0-0.4) 04/25/20 19:17 Baso # 0.0 K/mm3 (0.0-0.1) 04/25/20 19:17 Seg Neutrophils % 78.7 % (40.0-70.0) H 04/25/20 19:17 Seg Neutrophils # 4.0 K/mm3 (1.8-7.7) 04/25/20 19:17 D-Dimer 7654.83 ng/mlDDU (0-234) H 04/25/20 19:17 ABG pH 7.427 pH Units (7.350-7.450) 04/25/20 22:00 ABG pCO2 33.2 mm Hg 04/25/20 22:00 ABG pO2 99.9 mm Hg (80.0-90.0) H 04/25/20 22:00 ABG HCO3 21.4 mmol/L (20.0-26.0) 04/25/20 22:00 ABG O2 Saturation 97.7 % (95.0-99.0) 04/25/20 22:00 ABG O2 Content 17.1 (0.0-44) 04/25/20 22:00 ABG Base Excess -2.2 mmol/L (-2.0-3.0) L 04/25/20 22:00 ABG Hemoglobin 12.6 gm/dl (14.0-18.0) L 04/25/20 22:00 ABG Carboxyhemoglobin 1.7 % (0.0-5.0) 04/25/20 22:00 ABG Methemoglobin 0.4 % (0.0-1.5) 04/25/20 22:00 Oxyhemoglobin 95.6 % (95.0-99.0) 04/25/20 22:00 FiO2 21 % 04/25/20 22:00 Sodium 150 mmol/L (137-145) H 04/26/20 05:11 Potassium 3.7 mmol/L (3.6-5.0) 04/26/20 05:11 Chloride 113.1 mmol/L (98-107) H 04/26/20 05:11 Carbon Dioxide 23 mmol/L (22-30) 04/26/20 05:11 Anion Gap 18 mmol/L 04/26/20 05:11 BUN 74 mg/dL (9-20) H 04/26/20 05:11 Creatinine 2.0 mg/dL (0.8-1.3) H 04/26/20 05:11 Estimated GFR 39 ml/min 04/26/20 05:11 BUN/Creatinine Ratio 37 % 04/26/20 05:11 Glucose 106 mg/dL (75-100) H 04/26/20 05:11 POC Glucose 83 (70-105) 04/27/20 07:58 Calcium 9.2 mg/dL (8.4-10.2) 04/26/20 05:11 Ferritin 658.6 ng/mL (30.0-300.0) H 04/25/20 19:17 Total Bilirubin 3.40 mg/dL (0.1-1.2) H 04/25/20 19:17 AST 74 units/L (5-40) H 04/25/20 19:17 ALT 48 units/L (7-56) 04/25/20 19:17 Alkaline Phosphatase 610 units/L (35-129) H 04/25/20 19:17 Lactate Dehydrogenase 421 units/L (91-180) H 04/25/20 19:17 Total Creatine Kinase 65 units/L (55-170) 04/25/20 19:17 CK-MB (CK-2) 1.4 ng/mL (0.0-4.0) 04/25/20 19:17 CK-MB (CK-2) Rel Index 2.1 (0-4) 04/25/20 19:17 Troponin T < 0.010 ng/mL (0.00-0.029) 04/25/20 19:17 C-Reactive Protein 12.40 mg/dL (0.00-1.30) H 04/25/20 19:17 NT-Pro-B Natriuret Pep 244.7 pg/mL (0-900) 04/25/20 19:17 Total Protein 8.2 g/dL (6.3-8.2) 04/25/20 19:17 Albumin 2.8 g/dL (3.9-5) L 04/25/20 19:17 Albumin/Globulin Ratio 0.5 % 04/25/20 19:17 Procalcitonin 2.77 ng/mL (<0.15) 04/25/20 19:17 Urine Color Yellow (Yellow) 04/26/20 15:40 Urine Turbidity Slightly-cloudy (Clear) 04/26/20 15:40 Urine pH 5.0 (5.0-7.0) 04/26/20 15:40 Ur Specific [place] 1.015 (1.003-1.030) 04/26/20 15:40 Urine Protein <15 mg/dl mg/dL (Negative) 04/26/20 15:40 Urine Glucose (UA) Neg mg/dL (Negative) 04/26/20 15:40 Urine Ketones Neg mg/dL (Negative) 04/26/20 15:40 Urine Blood Mod (Negative) 04/26/20 15:40 Urine Nitrite Neg (Negative) 04/26/20 15:40 Urine Bilirubin Neg (Negative) 04/26/20 15:40 Urine Urobilinogen < 2.0 mg/dL (<2.0) 04/26/20 15:40 Ur Leukocyte Esterase Sm (Negative) 04/26/20 15:40 Urine WBC (Auto) 11.0 /HPF (0.0-6.0) H 04/26/20 15:40 Urine RBC (Auto) 3.0 /HPF (0.0-6.0) 04/26/20 15:40 U Epithel Cells (Auto) 5.0 /HPF (0-13.0) 04/26/20 15:40 Urine Bacteria (Auto) 1+ /HPF (Negative) 04/26/20 15:40 Urine Mucus Few /HPF 04/26/20 15:40 Urine Eosinophils None seen (None Seen) 04/26/20 15:40 Urine Creatinine 72.7 mg/dL (0.1-20.0) H 04/26/20 15:40 Urine Creatinine 73.5 mg/dL (0.1-20.0) H 04/26/20 15:40 Protein/Creatinin Ratio 0.65 04/26/20 15:40 Urine Sodium 38 mmol/L 04/26/20 15:40 Urine Urea Nitrogen 1064 04/26/20 15:40 Urine Total Protein 47 mg/dL (5-11.8) H 04/26/20 15:40 Coronavirus (PCR) Negative (Negative) 04/26/20 Unknown Microbiology: Microbiology 04/25/20 19:31 Peripheral/Venous Blood Culture - Preliminary NO GROWTH AFTER 24 HOURS 04/25/20 19:17 Peripheral/Venous Blood Culture - Preliminary NO GROWTH AFTER 24 HOURS Mendoza/IV: Voiding Method Incontinent IV Catheter Type [Right INT / Saline Lock Forearm] Active Medications - Current Medications Current Medications: Generic Name Dose Route Start Last Admin Trade Name Freq PRN Reason Stop Dose Admin Albuterol 2.5 mg 04/26/20 07:30 Proventil IH Q4HRT PRN Shortness Of Breath Dextrose 0 ml 04/25/20 23:07 D50w (25gm) Syringe IV Q30MIN PRN Hypoglycemia Protocol Heparin Sodium (Porcine) 5,000 unit 04/25/20 23:00 04/27/20 10:17 Heparin SUB-Q 5,000 unit Q12HR PAOLA Administration Azithromycin 500 mg/ Sodium 250 mls @ 250 mls/hr 04/26/20 16:00 04/26/20 17:59 Chloride IV 04/28/20 10:59 250 mls/hr Q24HR PAOLA Administration Protocol Dextrose 1,000 mls @ 125 mls/hr 04/26/20 21:00 04/27/20 06:32 D5w IV 125 mls/hr DIRECT PAOLA Administration Ceftriaxone Sodium 1 gm in 50 mls @ 100 mls/hr 04/27/20 10:00 04/27/20 10:17 Rocephin/Ns 1 Gm/50 Ml IV 05/01/20 10:29 100 mls/hr Q24HR PAOLA Administration Insulin Human Lispro 0 unit 04/26/20 07:30 04/27/20 09:00 Humalog SUB-Q Not Given ACHS PAOLA Protocol Nutrition/Malnutrition Assess - Dietary Evaluation Nutrition/Malnutrition Findings: Nutrition Notes Start: 04/26/20 13:43 Freq: Status: Active Protocol: Document 04/26/20 13:43 [email or web address] (Rec: 04/26/20 14:23 [email or web address]) Co-Sign 04/26/20 13:43 LM Nutrition Notes Need for Assessment 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 Pt is NPO. 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 Pt is non verbal. Pt teri score 13 but has no skin breakdown Burn Absent Trauma Absent Food Allergy No Current % PO Negligible Minimum of two criteria No physical signs of malnutrition #1 Nutrition Diagnosis Inadequate oral intake Etiology chronic illness, Suspected COVID-19 As Evidenced by Signs and Symptoms Pt NPO and BMI 14.6 Is patient on ventilator? No Is Patient Ambulatory and/or Out of Bed No REE-([place]-confined to bed) [phone] Kcal/Kg value to use for calculation 38 Approximate Energy Requirements Using 1656 kcal/Kg Calculation Used for Recommendations Kcal/kg Additional Notes Protein Needs (.8-1.2g/kg) 35- 53g/kg Fluid Needs 1ml/kcal Nutrition Intervention Change Diet Order: Advance diet when feasible Goal #1 Meet at least 75% of energy and protein needs Goal #2 diet advancement Anticipated Discharge Needs: Cardiac/Consistent CHO Follow-Up By: 04/30/20 Additional Comments F/U for diet advancement and intakes
--- NOTE | 2020-04-27 11:00 | Progress Note ---
Assessment and Plan Hypoxia COVID-19 rule out acute renal failure appears to be secondary to prerenal azotemia Hypernatremia BMP is pending negative urine protein, fraction excretion of urea inconclusive renally dose meds strict I&O daily weight Avoid nephrotoxins Griffin Lockwood MD please call me if you have any questions [phone] Subjective Date of service: 04/27/20 Principal diagnosis: JOSE Interval history: weak but comfortable Objective - General Appearance General appearance: appears stated age, cachectic EENT: ATNC, PERRL, mucous membranes dry Neck: no JVD Respiratory: Present: Decreased Breath Sounds Cardiology: regular, S1S2 Gastrointestinal: normoactive bowel sounds, no tenderness, no distended Integumentary: no rash, warm and dry Neurologic: no focal deficit, no asterixis Musculoskeletal: other (no edema in BLE) Psychiatric: cooperative - Lab 04/25/20 19:17 04/26/20 05:11 Most recent lab results ABG pH 7.427 pH Units (7.350-7.450) 04/25/20 22:00 ABG pCO2 33.2 mm Hg 04/25/20 22:00 ABG pO2 99.9 mm Hg (80.0-90.0) H 04/25/20 22:00 ABG HCO3 21.4 mmol/L (20.0-26.0) 04/25/20 22:00 ABG O2 Saturation 97.7 % (95.0-99.0) 04/25/20 22:00 Calcium 9.2 mg/dL (8.4-10.2) 04/26/20 05:11 Urine Creatinine 72.7 mg/dL (0.1-20.0) H 04/26/20 15:40 Urine Creatinine 73.5 mg/dL (0.1-20.0) H 04/26/20 15:40 Urine Sodium 38 mmol/L 04/26/20 15:40 Urine Total Protein 47 mg/dL (5-11.8) H 04/26/20 15:40 Medications & Allergies - Medications Allergies/Adverse Reactions: Allergies No Known Allergies Allergy (Verified 04/14/14 11:39) Home Medications: Home Medications Medication Instructions Recorded Confirmed Last Taken Type Potassium Chloride [Klor-Con 10] 1 tab PO DAILY 04/14/14 03/30/18 03/29/18 History 10 meq Furosemide [Lasix TAB] 20 mg PO QDAY 09/12/17 03/30/18 03/29/18 History 20 mg lisinopriL [Prinivil] 5 mg PO QDAY 09/12/17 03/30/18 03/29/18 History 5 mg levoFLOXacin [Levaquin TAB] 500 mg PO QDAY #5 tablet 09/16/17 03/30/18 03/29/18 Rx 500 mg Tamsulosin [Flomax] 0.4 mg PO QDAY 03/30/18 03/30/18 03/29/18 History 0.4mg Active Medications: Generic Name Dose Route Start Last Admin Trade Name Freq PRN Reason Stop Dose Admin Albuterol 2.5 mg 04/26/20 07:30 Proventil IH Q4HRT PRN Shortness Of Breath Dextrose 0 ml 04/25/20 23:07 D50w (25gm) Syringe IV Q30MIN PRN Hypoglycemia Protocol Heparin Sodium (Porcine) 5,000 unit 04/25/20 23:00 04/27/20 10:17 Heparin SUB-Q 5,000 unit Q12HR PAOLA Administration Azithromycin 500 mg/ Sodium 250 mls @ 250 mls/hr 04/26/20 16:00 04/26/20 17:59 Chloride IV 04/28/20 10:59 250 mls/hr Q24HR PAOLA Administration Protocol Dextrose 1,000 mls @ 125 mls/hr 04/26/20 21:00 04/27/20 06:32 D5w IV 125 mls/hr DIRECT PAOLA Administration Ceftriaxone Sodium 1 gm in 50 mls @ 100 mls/hr 04/27/20 10:00 04/27/20 10:17 Rocephin/Ns 1 Gm/50 Ml IV 05/01/20 10:29 100 mls/hr Q24HR PAOLA Administration Insulin Human Lispro 0 unit 04/26/20 07:30 04/27/20 09:00 Humalog SUB-Q Not Given ACHS PAOLA Protocol
[2020-04-27 11:18] LABS: Basophils % (Auto) 0.1 % (0.0-1.8); Eosinophils # (Auto) 0.2 K/mm3 (0.0-0.4); Eosinophils % (Auto) 1.9 % (0.0-4.3); Hematocrit 27.8 % (35.5-45.6); Hemoglobin 9.7 gm/dl (11.8-15.2); Lymphocytes # (Auto) 0.8 K/mm3 (1.2-5.4); Mean Corpuscular HGB Conc 35 % (32-34); Mean Corpuscular Volume 96 fl (84-94); Monocytes # (Auto) 0.8 K/mm3 (0.0-0.8); Platelet Count 275 K/mm3 (140-440); Red Cell Distribution Width 13.6 % (13.2-15.2)
[2020-04-27 11:48] LABS: BUN/Creatinine Ratio 48; Blood Urea Nitrogen 38 mg/dL (9-20); Calcium 9.1 mg/dL (8.4-10.2); Hemolysis Index 0
--- NOTE | 2020-04-27 12:03 | Progress Note ---
Assessment and Plan Cultures: Blood culture 04/25/2020 pending COVID-19 negative A/P: 79-year-old man past medical history diabetes, hypertension, CKD, prostate cancer admitted with shortness of breath. #Bilateral pneumonia: Infiltrate stable from 2 years ago, however may have resolved and then returned or may have chronic infiltrates in the lungs. His procalcitonin is elevated, however he does have a level of chronic kidney disease. COVID testing is negative, as such would recommend treating empirically with antibiotics. #JOSE on CKD: Renally dose antibiotics #Diabetes: tight glycemic control for best outcomes. Recs: -Start ceftriaxone and azithromycin. Recommend 5 and 3 days respectively. -Can trend procalcitonin every few days to monitor for improvement. -Ordered for the AM Dr. Arechiga covering over this weekend Thank you for the consult, we will continue to follow. Alli Aljeo MD [facility] ([facility]) M: [phone] O: [phone] F: [phone] Subjective Date of service: 04/27/20 Principal diagnosis: JOSE Interval history: Able, normal white count. No acute changes. Objective - Exam Narrative Exam: Physical Exam: Constitutional: Noncommunicative, short of breath, stable Head, Ears, Nose: Normocephalic, atraumatic. Eyes: Conjunctivae/corneas clear. No icterus. No ptosis. Neck: Supple, no meningeal signs Oral: dentition fair, no thrush Cardiovascular: S1, S2 normal. Respiratory: Poor air entry bilaterally. GI: Soft, non-tender; bowel sounds normal. No peritoneal signs. Musculoskeletal: No pedal edema, no cyanosis. Skin: No rash or abscess Hem/Lymphatic: No palpable cervical or supraclavicular nodes. No lymphangitis Psych: Nonverbal Neurological: Nonverbal - Constitutional Vitals: Vital Signs Temp Pulse Resp BP Pulse Ox 98.6 F 107 H 18 137/92 97 04/26/20 22:47 04/26/20 22:47 04/26/20 22:47 04/26/20 22:47 04/26/20 22:47 Temperature -Last 24 Hours Temperature 98.6 F Temperature 98.2 F - Labs CBC & Chem 7: 04/27/20 10:35 04/27/20 10:35 Labs: Abnormal lab results 04/26/20 04/26/20 04/26/20 Range/Units 15:40 15:40 15:40 RBC (3.65-5.03) M/mm3 Hgb (11.8-15.2) gm/dl Hct (35.5-45.6) % MCV (84-94) fl MCH (28-32) pg MCHC (32-34) % Lymph % (Auto) (13.4-35.0) % [place] % (Auto) (0.0-7.3) % Lymph # (1.2-5.4) K/mm3 Seg Neutrophils % (40.0-70.0) % Potassium (3.6-5.0) mmol/L Chloride (98-107) mmol/L BUN (9-20) mg/dL POC Glucose (70-105) Phosphorus (2.5-4.5) mg/dL Urine WBC (Auto) 11.0 H (0.0-6.0) /HPF Urine Creatinine 73.5 H 72.7 H (0.1-20.0) mg/dL Urine Total Protein 47 H (5-11.8) mg/dL 04/27/20 04/27/20 04/27/20 Range/Units 10:35 10:35 11:23 RBC 2.90 L (3.65-5.03) M/mm3 Hgb 9.7 L (11.8-15.2) gm/dl Hct 27.8 L D (35.5-45.6) % MCV 96 H (84-94) fl MCH 34 H (28-32) pg MCHC 35 H (32-34) % Lymph % (Auto) 9.0 L (13.4-35.0) % [place] % (Auto) 9.0 H (0.0-7.3) % Lymph # 0.8 L (1.2-5.4) K/mm3 Seg Neutrophils % 80.0 H (40.0-70.0) % Potassium 3.4 L (3.6-5.0) mmol/L Chloride 112.9 H (98-107) mmol/L BUN 38 H (9-20) mg/dL POC Glucose 67 L (70-105) Phosphorus 1.70 L (2.5-4.5) mg/dL Urine WBC (Auto) (0.0-6.0) /HPF Urine Creatinine (0.1-20.0) mg/dL Urine Total Protein (5-11.8) mg/dL
[2020-04-27] MEDS: AZITHROMYCIN 500 MG in SODIUM CHLORIDE 0.9% 250ML 250 ML IV SCH (13:37)
[2020-04-27] MEDS ORDERED: SODIUM BICARBONATE 325 MG TAB FEEDTUBE PRN (14:44)
[2020-04-27] MEDS ORDERED: LIPASE 10,500/PROTEASE 25,000/AMYLASE 43,750 (UNITS) DR CAP FEEDTUBE PRN (14:44)
[2020-04-27] MEDS ORDERED: SIMPLE SYRUP 15 ML FEEDTUBE PRN ×2 (14:44)
[2020-04-27] MEDS ORDERED: POTASSIUM PHOSPHATE 45 MMOL in SODIUM CHLORIDE 0.9% 500 ML 500 ML IV ONE (14:47)
--- NOTE | 2020-04-27 19:06 | Ultrasound Report ---
ULTRASOUND RENAL INDICATION / CLINICAL INFORMATION: Renal failure. COMPARISON: None available. FINDINGS: RIGHT KIDNEY: - Length = 10.9 cm. [Normal > 9.0 cm] - Parenchymal Thickness = 1.2 cm. [Normal > 1.5 cm] - Echogenicity: Normal -- hypoechoic or isoechoic to liver/spleen. - Hydronephrosis: None. - Cyst or mass: Multiple simple cysts, the largest of which measures approximately 3.4 cm mid kidney. LEFT KIDNEY: - Length = 9.0 cm. [Normal > 9.0 cm] - Parenchymal Thickness = 1.6 cm. [Normal > 1.5 cm] - Echogenicity: Normal -- hypoechoic or isoechoic to liver/spleen. - Hydronephrosis: None. - Cyst or mass: 1.2 cm rounded hyperechoic lesion in the upper pole medially. No posterior shadowing. URINARY BLADDER: Focal echogenic material in the posterior urinary bladder on the right without inter nal blood flow on Doppler exam. ADDITIONAL FINDINGS: 4.3 cm hypoechoic solid mass in the posterior segment of the right lobe of the l iver. IMPRESSION: 1. No evidence of hydronephrosis or medical renal disease. 2. Multiple simple right renal cysts. 1.2 cm hyperechoic lesion in the upper pole of the left kidney medially may represent focal fat, angiomyolipoma, or less likely a calculus. 3. Echogenic material in the urinary bladder on the right may represent echogenic/high density urine or debris. A urinary bladder mass is possible. 4. 4.3 cm solid mass in the right lobe of the liver. No mass was noted on a prior CT of the abdomen f [facility] 12/01/18. Renal Parenchymal Thickness Parenchyma = Cortex + Medullary Pyramid - Normal >= 1.5 cm - Mild thinning = 1.0-1.49 cm - Moderate thinning = 0.5-0.99 cm - Severe thinning < 0.5 cm Signer Name: Osiel Tolliver MD Signed: 04/27/2020 7:02 PM Workstation Name: [id number]
--- NOTE | 2020-04-27 20:43 | XRay Report ---
ABDOMEN 1 VIEW 8:28 PM INDICATION / CLINICAL INFORMATION: NG tube placement. COMPARISON: None available. FINDINGS: TUBES / LINES: There is a weighted enteric feeding tube doubled back on itself in the gastric body wi th the tip overlying the gastric fundus, just below the gastroesophageal junction. BOWEL GAS PATTERN: No significant abnormality. FREE AIR / EXTRALUMINAL GAS: None seen. ADDITIONAL FINDINGS: Diffuse interstitial lung disease has not changed since 04/25/20. IMPRESSION: Feeding tube tip overlies the proximal stomach. Signer Name: Osiel Tolliver MD Signed: 04/27/2020 8:39 PM Workstation Name: [id number]
[2020-04-28 06:38] LABS: Basophils % (Auto) 0.1 % (0.0-1.8); Eosinophils # (Auto) 0.1 K/mm3 (0.0-0.4); Eosinophils % (Auto) 1.5 % (0.0-4.3); Hematocrit 27.7 % (35.5-45.6); Hemoglobin 9.6 gm/dl (11.8-15.2); Lymphocytes % (Auto) 11.6 % (13.4-35.0); Mean Corpuscular HGB Conc 35 % (32-34); Mean Corpuscular Volume 96 fl (84-94); Monocytes # (Auto) 0.8 K/mm3 (0.0-0.8); Platelet Count 256 K/mm3 (140-440); Red Blood Count 2.87 M/mm3 (3.65-5.03); Red Cell Distribution Width 13.5 % (13.2-15.2)
[2020-04-28 06:53] LABS: Blood Urea Nitrogen 23 mg/dL (9-20); Calcium 8.5 mg/dL (8.4-10.2); Hemolysis Index 0
[2020-04-28 07:01] LABS: BUN/Creatinine Ratio 33
[2020-04-28] MEDS: INSULIN LISPRO 100 UNIT/ML VIAL 3 mL SUB-Q SCH ×4 (08:06→21:22)
[2020-04-28] MEDS: cefTRIAXone/NS 1 GM/50 ML 1 GM/50 ML BAG IV SCH (10:24)
[2020-04-28] MEDS: AZITHROMYCIN 500 MG in SODIUM CHLORIDE 0.9% 250ML 250 ML IV SCH (10:25)
[2020-04-28] MEDS: TAMSULOSIN 0.4 MG CAP PO SCH (10:41)
[2020-04-28] MEDS: LISINOPRIL 5 MG TAB PO SCH (10:42)
[2020-04-28] MEDS: HEPARIN 5,000 UNIT/1 ML VIAL SUB-Q SCH ×2 (10:42→21:17)
--- NOTE | 2020-04-28 11:49 | Progress Note ---
Assessment and Plan Hypoxia COVID-19 rule out Acute kidney injury secondary to prerenal azotemia Hypernatremia Plan: Renal function reviewed, SCr level was 0.7 today JOSE and hypernatremia resolved, we will sign off Serum Na level was 142 today Negative urine protein, fraction excretion of urea inconclusive Renally dose meds COVID-19 negative Strict I&O Renal plan d/w Dr Soliz Subjective Date of service: 04/28/20 Principal diagnosis: JOSE Interval history: Pt awake, nonverbal, no acute distress Objective - Vital Signs Vital signs: Vital Signs - 12hr 04/28/20 05:31 Temperature 99.5 F Pulse Rate 55 L Respiratory 20 Rate Blood Pressure 112/50 O2 Sat by Pulse 94 Oximetry - General Appearance General appearance: frail EENT: ATNC Neck: no JVD Respiratory: Present: Decreased Breath Sounds Cardiology: regular Gastrointestinal: normoactive bowel sounds Integumentary: warm and dry Neurologic: other (awake, nonverbal) Musculoskeletal: other (no edema to BLE) - Lab 04/28/20 04:59 04/28/20 04:59 Most recent lab results ABG pH 7.427 pH Units (7.350-7.450) 04/25/20 22:00 ABG pCO2 33.2 mm Hg 04/25/20 22:00 ABG pO2 99.9 mm Hg (80.0-90.0) H 04/25/20 22:00 ABG HCO3 21.4 mmol/L (20.0-26.0) 04/25/20 22:00 ABG O2 Saturation 97.7 % (95.0-99.0) 04/25/20 22:00 Calcium 8.5 mg/dL (8.4-10.2) 04/28/20 04:59 Phosphorus 1.70 mg/dL (2.5-4.5) L 04/27/20 10:35 Urine Creatinine 72.7 mg/dL (0.1-20.0) H 04/26/20 15:40 Urine Creatinine 73.5 mg/dL (0.1-20.0) H 04/26/20 15:40 Urine Sodium 38 mmol/L 04/26/20 15:40 Urine Total Protein 47 mg/dL (5-11.8) H 04/26/20 15:40 Medications & Allergies - Medications Allergies/Adverse Reactions: Allergies No Known Allergies Allergy (Verified 04/14/14 11:39) Home Medications: Home Medications Medication Instructions Recorded Confirmed Last Taken Type Potassium Chloride [Klor-Con 10] 1 tab PO DAILY 04/14/14 04/28/20 03/29/18 History 10 meq Furosemide [Lasix TAB] 20 mg PO QDAY 09/12/17 04/28/20 03/29/18 History 20 mg lisinopriL [Prinivil] 5 mg PO QDAY 09/12/17 04/28/20 03/29/18 History 5 mg levoFLOXacin [Levaquin TAB] 500 mg PO QDAY #5 tablet 09/16/17 04/28/20 03/29/18 Rx 500 mg Tamsulosin [Flomax] 0.4 mg PO QDAY 03/30/18 04/28/20 03/29/18 History 0.4mg Active Medications: Generic Name Dose Route Start Last Admin Trade Name Freq PRN Reason Stop Dose Admin Albuterol 2.5 mg 04/26/20 07:30 Proventil IH Q4HRT PRN Shortness Of Breath Lipase/Protease/Amylase 1 each 04/27/20 14:44 Pancreaze 10,500 Unit FEEDTUBE PRN PRN For Clogged Feeding Tube Dextrose 0 ml 04/25/20 23:07 04/27/20 11:19 D50w (25gm) Syringe IV 50 ml Q30MIN PRN Administration Hypoglycemia Protocol Heparin Sodium (Porcine) 5,000 unit 04/25/20 23:00 04/28/20 10:42 Heparin SUB-Q 5,000 unit Q12HR PAOLA Administration Dextrose 1,000 mls @ 125 mls/hr 04/26/20 21:00 04/27/20 06:32 D5w IV 125 mls/hr DIRECT PAOLA Administration Ceftriaxone Sodium 1 gm in 50 mls @ 100 mls/hr 04/27/20 10:00 04/28/20 10:24 Rocephin/Ns 1 Gm/50 Ml IV 05/01/20 10:29 100 mls/hr Q24HR PAOLA Administration Insulin Human Lispro 0 unit 04/26/20 07:30 04/28/20 08:06 Humalog SUB-Q Not Given ACHS PAOLA Protocol Lisinopril 5 mg 04/28/20 10:00 04/28/20 10:42 Zestril PO Not Given QDAY PAOLA Simple Syrup 15 ml 04/27/20 14:44 Simple Syrup FEEDTUBE PRN PRN Hypoglycemia Simple Syrup 30 ml 04/27/20 14:44 Simple Syrup FEEDTUBE PRN PRN Hypoglycemia Sodium Bicarbonate 325 mg 04/27/20 14:44 Sodium Bicarbonate FEEDTUBE PRN PRN For Clogged Feeding Tube Tamsulosin HCl 0.4 mg 04/28/20 10:00 04/28/20 10:41 Flomax PO Not Given QDAY PAOLA
[2020-04-28] MEDS ORDERED: SIMPLE SYRUP 15 ML FEEDTUBE PRN ×2 (12:20)
[2020-04-28] MEDS ORDERED: LIPASE 10,500/PROTEASE 25,000/AMYLASE 43,750 (UNITS) DR CAP FEEDTUBE PRN (12:20)
[2020-04-28] MEDS ORDERED: SODIUM BICARBONATE 325 MG TAB FEEDTUBE PRN (12:20)
--- NOTE | 2020-04-28 14:00 | Progress Note ---
Assessment and Plan Assessment and plan: -COVID-19 test negative 04/26/2020 --Hypokalemia/hypophosphatemia; Replenished with potassium phosphate IV Monitor electrolytes --Dysphagia/failed bedside swallow Will check speech and swallow evaluation Meanwhile we will start tube feeding Dobbhoff placement for tube feeds and medications Closely monitor, nutrition consult --Sepsis secondary to bilateral pneumonia: Tachycardia ,tachypnea ,lung infiltrates on chest x-ray Empiric antibiotics, follow cultures ID following --Hypotension; Rigorous IV hydration Increase oral intake If no improvement will try Midrin --Type 2 diabetes mellitus; Accu-Chek sliding scale coverage ADA diet and insulin as needed --Acute kidney injury; Vasomotor nephropathy Gentle hydration, monitor renal function Avoid nephrotoxins, nephrology consult if needed --Severe protein calorie malnutrition; cachexia Patient supplements, nutrition consult --Hypernatremia: Probably severe dehydration Change IV fluids from normal saline to D5W Closely monitor electrolytes --DVT prophylaxis;Heparin We will closely monitor the patient and adjust management as needed Plan of care reviewed with the patient and his nurse 04/28/20; COVID-19 test negative, bilateral pneumonia and sepsis, follow-up speech and swallow eval Diet as tolerated History Interval history: I have seen and examined the patient at the bedside Patient is COVID negative Chronically ill looking cachectic, emaciated and malnourished Vital signs noted Hospitalist Physical - Constitutional Vitals: Temp Pulse Resp BP Pulse Ox 98.0 F 83 20 116/57 99 04/28/20 11:22 04/28/20 11:23 04/28/20 11:22 04/28/20 11:22 04/28/20 11:23 General appearance: Present: mild distress, cachectic, disheveled, other (Malnourished) - EENT Eyes: Present: PERRL, EOM intact - Neck Neck: Present: supple, normal ROM - Respiratory Respiratory effort: normal Respiratory: bilateral: diminished, negative: rales, rhonchi, wheezing - Cardiovascular Rhythm: regular Heart Sounds: Present: S1 & S2 - Extremities Extremities: no ischemia, No edema - Abdominal General gastrointestinal: soft, non-tender, non-distended, normal bowel sounds - Integumentary Integumentary: Present: clear, warm - Psychiatric Psychiatric: other (Noncommunicative) - Neurologic Neurologic: other (Noncommunicative) HEART Score - HEART Score Risk factors: 1-2 risk factors Troponin: Troponin T < 0.010 ng/mL (0.00-0.029) 04/25/20 19:17 Troponin: < normal limit - Critical Actions Critical Actions: 0-3 pts:0.9-1.7%risk of adverse cardiac event.Candidate for discharge Results - Labs CBC & Chem 7: 04/29/20 05:38 04/29/20 05:38 Labs: Laboratory Last Values WBC 8.3 K/mm3 (4.5-11.0) 04/28/20 04:59 RBC 2.87 M/mm3 (3.65-5.03) L 04/28/20 04:59 Hgb 9.6 gm/dl (11.8-15.2) L 04/28/20 04:59 Hct 27.7 % (35.5-45.6) L 04/28/20 04:59 MCV 96 fl (84-94) H 04/28/20 04:59 MCH 33 pg (28-32) H 04/28/20 04:59 MCHC 35 % (32-34) H 04/28/20 04:59 RDW 13.5 % (13.2-15.2) 04/28/20 04:59 Plt Count 256 K/mm3 (140-440) 04/28/20 04:59 Lymph % (Auto) 11.6 % (13.4-35.0) L 04/28/20 04:59 [place] % (Auto) 10.0 % (0.0-7.3) H 04/28/20 04:59 Eos % (Auto) 1.5 % (0.0-4.3) 04/28/20 04:59 Baso % (Auto) 0.1 % (0.0-1.8) 04/28/20 04:59 Lymph # 1.0 K/mm3 (1.2-5.4) L 04/28/20 04:59 [place] # 0.8 K/mm3 (0.0-0.8) 04/28/20 04:59 Eos # 0.1 K/mm3 (0.0-0.4) 04/28/20 04:59 Baso # 0.0 K/mm3 (0.0-0.1) 04/28/20 04:59 Seg Neutrophils % 76.8 % (40.0-70.0) H 04/28/20 04:59 Seg Neutrophils # 6.4 K/mm3 (1.8-7.7) 04/28/20 04:59 D-Dimer 7654.83 ng/mlDDU (0-234) H 04/25/20 19:17 ABG pH 7.427 pH Units (7.350-7.450) 04/25/20 22:00 ABG pCO2 33.2 mm Hg 04/25/20 22:00 ABG pO2 99.9 mm Hg (80.0-90.0) H 04/25/20 22:00 ABG HCO3 21.4 mmol/L (20.0-26.0) 04/25/20 22:00 ABG O2 Saturation 97.7 % (95.0-99.0) 04/25/20 22:00 ABG O2 Content 17.1 (0.0-44) 04/25/20 22:00 ABG Base Excess -2.2 mmol/L (-2.0-3.0) L 04/25/20 22:00 ABG Hemoglobin 12.6 gm/dl (14.0-18.0) L 04/25/20 22:00 ABG Carboxyhemoglobin 1.7 % (0.0-5.0) 04/25/20 22:00 ABG Methemoglobin 0.4 % (0.0-1.5) 04/25/20 22:00 Oxyhemoglobin 95.6 % (95.0-99.0) 04/25/20 22:00 FiO2 21 % 04/25/20 22:00 Sodium 142 mmol/L (137-145) 04/28/20 04:59 Potassium 3.7 mmol/L (3.6-5.0) 04/28/20 04:59 Chloride 108.6 mmol/L (98-107) H 04/28/20 04:59 Carbon Dioxide 24 mmol/L (22-30) 04/28/20 04:59 Anion Gap 13 mmol/L 04/28/20 04:59 BUN 23 mg/dL (9-20) H 04/28/20 04:59 Creatinine 0.7 mg/dL (0.8-1.3) L 04/28/20 04:59 Estimated GFR > 60 ml/min 04/28/20 04:59 BUN/Creatinine Ratio 33 % 04/28/20 04:59 Glucose 77 mg/dL (75-100) 04/28/20 04:59 POC Glucose 99 (70-105) 04/28/20 11:39 Calcium 8.5 mg/dL (8.4-10.2) 04/28/20 04:59 Phosphorus 1.70 mg/dL (2.5-4.5) L 04/27/20 10:35 Ferritin 658.6 ng/mL (30.0-300.0) H 04/25/20 19:17 Total Bilirubin 3.40 mg/dL (0.1-1.2) H 04/25/20 19:17 AST 74 units/L (5-40) H 04/25/20 19:17 ALT 48 units/L (7-56) 04/25/20 19:17 Alkaline Phosphatase 610 units/L (35-129) H 04/25/20 19:17 Lactate Dehydrogenase 421 units/L (91-180) H 04/25/20 19:17 Total Creatine Kinase 65 units/L (55-170) 04/25/20 19:17 CK-MB (CK-2) 1.4 ng/mL (0.0-4.0) 04/25/20 19:17 CK-MB (CK-2) Rel Index 2.1 (0-4) 04/25/20 19:17 Troponin T < 0.010 ng/mL (0.00-0.029) 04/25/20 19:17 C-Reactive Protein 12.40 mg/dL (0.00-1.30) H 04/25/20 19:17 NT-Pro-B Natriuret Pep 244.7 pg/mL (0-900) 04/25/20 19:17 Total Protein 8.2 g/dL (6.3-8.2) 04/25/20 19:17 Albumin 2.8 g/dL (3.9-5) L 04/25/20 19:17 Albumin/Globulin Ratio 0.5 % 04/25/20 19:17 Procalcitonin 0.77 ng/mL (<0.15) 04/28/20 04:59 Urine Color Yellow (Yellow) 04/26/20 15:40 Urine Turbidity Slightly-cloudy (Clear) 04/26/20 15:40 Urine pH 5.0 (5.0-7.0) 04/26/20 15:40 Ur Specific [place] 1.015 (1.003-1.030) 04/26/20 15:40 Urine Protein <15 mg/dl mg/dL (Negative) 04/26/20 15:40 Urine Glucose (UA) Neg mg/dL (Negative) 04/26/20 15:40 Urine Ketones Neg mg/dL (Negative) 04/26/20 15:40 Urine Blood Mod (Negative) 04/26/20 15:40 Urine Nitrite Neg (Negative) 04/26/20 15:40 Urine Bilirubin Neg (Negative) 04/26/20 15:40 Urine Urobilinogen < 2.0 mg/dL (<2.0) 04/26/20 15:40 Ur Leukocyte Esterase Sm (Negative) 04/26/20 15:40 Urine WBC (Auto) 11.0 /HPF (0.0-6.0) H 04/26/20 15:40 Urine RBC (Auto) 3.0 /HPF (0.0-6.0) 04/26/20 15:40 U Epithel Cells (Auto) 5.0 /HPF (0-13.0) 04/26/20 15:40 Urine Bacteria (Auto) 1+ /HPF (Negative) 04/26/20 15:40 Urine Mucus Few /HPF 04/26/20 15:40 Urine Eosinophils None seen (None Seen) 04/26/20 15:40 Urine Creatinine 72.7 mg/dL (0.1-20.0) H 04/26/20 15:40 Urine Creatinine 73.5 mg/dL (0.1-20.0) H 04/26/20 15:40 Protein/Creatinin Ratio 0.65 04/26/20 15:40 Urine Sodium 38 mmol/L 04/26/20 15:40 Urine Urea Nitrogen 1064 04/26/20 15:40 Urine Total Protein 47 mg/dL (5-11.8) H 04/26/20 15:40 Coronavirus (PCR) Negative (Negative) 04/26/20 Unknown Microbiology: Microbiology 04/26/20 15:40 Urine,Clean Catch Urine Culture - Preliminary 04/25/20 19:31 Peripheral/Venous Blood Culture - Preliminary NO GROWTH AFTER 48 HOURS 04/25/20 19:17 Peripheral/Venous Blood Culture - Preliminary NO GROWTH AFTER 48 HOURS Mendoza/IV: Voiding Method Condom Catheter IV Catheter Type [Right Upper INT / Saline Lock arm] IV Catheter Type [Right INT / Saline Lock Antecubital] IV Catheter Type [Right INT / Saline Lock Forearm] Active Medications - Current Medications Current Medications: Generic Name Dose Route Start Last Admin Trade Name Freq PRN Reason Stop Dose Admin Albuterol 2.5 mg 04/26/20 07:30 Proventil IH Q4HRT PRN Shortness Of Breath Lipase/Protease/Amylase 1 each 04/28/20 12:20 Pancrecelio Collado 10,500 Unit FEEDTUBE PRN PRN For Clogged Feeding Tube Dextrose 0 ml 04/25/20 23:07 04/27/20 11:19 D50w (25gm) Syringe IV 50 ml Q30MIN PRN Administration Hypoglycemia Protocol Heparin Sodium (Porcine) 5,000 unit 04/25/20 23:00 04/28/20 10:42 Heparin SUB-Q 5,000 unit Q12HR PAOLA Administration Dextrose 1,000 mls @ 125 mls/hr 04/26/20 21:00 04/27/20 06:32 D5w IV 125 mls/hr DIRECT PAOLA Administration Ceftriaxone Sodium 1 gm in 50 mls @ 100 mls/hr 04/27/20 10:00 04/28/20 10:24 Rocephin/Ns 1 Gm/50 Ml IV 05/01/20 10:29 100 mls/hr Q24HR PAOLA Administration Insulin Human Lispro 0 unit 04/26/20 07:30 04/28/20 11:30 Humalog SUB-Q Not Given ACHS PAOLA Protocol Lisinopril 5 mg 04/28/20 10:00 04/28/20 10:42 Zestril PO Not Given QDAY PAOLA Simple Syrup 15 ml 04/28/20 12:20 Simple Syrup FEEDTUBE PRN PRN Hypoglycemia Simple Syrup 30 ml 04/28/20 12:20 Simple Syrup FEEDTUBE PRN PRN Hypoglycemia Sodium Bicarbonate 325 mg 04/28/20 12:20 Sodium Bicarbonate FEEDTUBE PRN PRN For Clogged Feeding Tube Tamsulosin HCl 0.4 mg 04/28/20 10:00 04/28/20 10:41 Flomax PO Not Given QDAY PAOLA Nutrition/Malnutrition Assess - Dietary Evaluation Nutrition/Malnutrition Findings: Nutrition Notes Start: 04/26/20 13:43 Freq: Status: Active Protocol: Document 04/28/20 12:10 CONNOR (Rec: 04/28/20 12:20 CONNOR SRW- [email or web address]) Nutrition Notes Need for Assessment generated from: MD Order Initial or Follow up Reassessment Current Diagnosis Acute Kidney Injury,Diabetes, Malnutrition Other Pertinent Diagnosis Dysphagia, bilat pneu, hypotension Current Diet NPO Labs/Tests reviewed Pertinent Medications D5W at 125ml/hr Height 5 ft 8 in Weight 44 kg [place] Body Weight (kg) 70.00 BMI 14.7 Subjective/Other Information RD consulted for TF. Burn Absent Trauma Absent Minimum of two criteria Yes Body Fat Depletion Moderate depletion (severe) Muscle Mass Moderate Depletion (severe) Reduced Second Steward Strength Measurably Reduced (severe) Protein-Calorie Malnutrition Severe #1 Nutrition Diagnosis Inadequate oral intake Etiology dysphagia As Evidenced by Signs and Symptoms pt remains NPO Diagnosis Progress(for reassessment Continues documentation) Is patient on ventilator? No Is Patient Ambulatory and/or Out of Bed No REE-([facility]confined to bed) 1374.264 Kcal/Kg value to use for calculation 40 Approximate Energy Requirements Using 1760 kcal/Kg Calculation Used for Recommendations Kcal/kg Additional Notes Pro needs 1.2-1.5g/k-66g/ day Fluid needs 1ml/kcal Nutrition Intervention Nutrition Support: Jevity 1.2 at 50ml/hr with 80ml water flush q4h. Kcal 1,440 Protein (gm) 67 Carbohydrates (gm) 203 Fluid (mL) 968 Fiber (gm) 22 Goal #1 TF tolerance Goal #2 TF (at goal rate) to meet 100% energy and pro needs Goal #3 Wt maintenance and/or gain Anticipated Discharge Needs: Continue TF Follow-Up By: 04/30/20 Additional Comments F/U: new TF, need for CHO- controlled TF formula
[2020-04-29 06:07] LABS: Basophils % (Auto) 0.4 % (0.0-1.8); Eosinophils # (Auto) 0.2 K/mm3 (0.0-0.4); Eosinophils % (Auto) 3.1 % (0.0-4.3); Hematocrit 29.2 % (35.5-45.6); Hemoglobin 10.3 gm/dl (11.8-15.2); Lymphocytes # (Auto) 1.4 K/mm3 (1.2-5.4); Lymphocytes % (Auto) 19.8 % (13.4-35.0); Mean Corpuscular HGB Conc 35 % (32-34); Mean Corpuscular Volume 96 fl (84-94); Monocytes # (Auto) 0.7 K/mm3 (0.0-0.8); Monocytes % (Auto) 9.5 % (0.0-7.3); Platelet Count 270 K/mm3 (140-440); Red Blood Count 3.04 M/mm3 (3.65-5.03); Red Cell Distribution Width 13.6 % (13.2-15.2)
[2020-04-29 06:18] LABS: Blood Urea Nitrogen 11 mg/dL (9-20); Calcium 8.7 mg/dL (8.4-10.2); Hemolysis Index 0
[2020-04-29 06:22] LABS: BUN/Creatinine Ratio 18
[2020-04-29] MEDS: INSULIN LISPRO 100 UNIT/ML VIAL 3 mL SUB-Q SCH ×4 (07:12→23:00)
[2020-04-29] MEDS: cefTRIAXone/NS 1 GM/50 ML 1 GM/50 ML BAG IV SCH (09:48)
[2020-04-29] MEDS: LISINOPRIL 5 MG TAB PO SCH (09:49)
[2020-04-29] MEDS: TAMSULOSIN 0.4 MG CAP PO SCH (09:49)
[2020-04-29] MEDS: HEPARIN 5,000 UNIT/1 ML VIAL SUB-Q SCH ×2 (09:55→21:05)
[2020-04-29] MEDS ORDERED: SODIUM PHOSPHATE 45 MMOL in SODIUM CHLORIDE 0.9% 500 ML 500 ML IV ONE (12:41)
--- NOTE | 2020-04-29 12:44 | Progress Note ---
Assessment and Plan Assessment and plan: -COVID-19 test negative 04/26/2020 --hypophosphatemia/hyponatremia Replenished with sodium phosphate Monitor electrolytes --Dysphagia/failed bedside swallow Will check speech and swallow evaluation Meanwhile we will start tube feeding Dobbhoff placement for tube feeds and medications Closely monitor, nutrition consult --Sepsis secondary to bilateral pneumonia: Tachycardia ,tachypnea ,lung infiltrates on chest x-ray Empiric antibiotics, follow cultures ID following --Hypotension; Rigorous IV hydration Increase oral intake If no improvement will try Midrin --Type 2 diabetes mellitus; Accu-Chek sliding scale coverage ADA diet and insulin as needed --Acute kidney injury; Vasomotor nephropathy Gentle hydration, monitor renal function Avoid nephrotoxins, nephrology consult if needed --Severe protein calorie malnutrition; cachexia Patient supplements, nutrition consult --DVT prophylaxis;Heparin --DC planning per case management We will closely monitor the patient and adjust management as needed Plan of care reviewed with the patient and his nurse 04/28/20; COVID-19 test negative, bilateral pneumonia and sepsis, follow-up speech and swallow eval Diet as tolerated 04/29; patient feels slightly better, able to tolerate pured diet, continue current antibiotics Physical therapy evaluation and management History Interval history: COVID 19 test negative; I have seen and examined the patient at the bedside today Patient is tolerating pured diet More alert and awake, not in acute distress Afebrile vital signs reviewed Hospitalist Physical - Constitutional Vitals: Temp Pulse Resp BP Pulse Ox 98.4 F 81 20 108/60 98 04/29/20 11:34 04/29/20 11:34 04/29/20 11:34 04/29/20 11:34 04/29/20 11:34 General appearance: Present: no acute distress, cachectic, disheveled, other (Malnourished) - EENT Eyes: Present: PERRL, EOM intact - Neck Neck: Present: supple, normal ROM - Respiratory Respiratory: bilateral: diminished, negative: rales, rhonchi, wheezing - Cardiovascular Rhythm: regular Heart Sounds: Present: S1 & S2 - Extremities Extremities: no ischemia, pulses intact, No edema - Abdominal General gastrointestinal: soft, non-tender, non-distended, normal bowel sounds - Integumentary Integumentary: Present: clear, warm - Psychiatric Psychiatric: appropriate mood/affect, cooperative - Neurologic Neurologic: CNII-XII intact, moves all extremities HEART Score - HEART Score Risk factors: 1-2 risk factors Troponin: Troponin T < 0.010 ng/mL (0.00-0.029) 04/25/20 19:17 Troponin: < normal limit - Critical Actions Critical Actions: 0-3 pts:0.9-1.7%risk of adverse cardiac event.Candidate for discharge Results - Labs CBC & Chem 7: 04/29/20 05:38 04/29/20 05:38 Labs: Laboratory Last Values WBC 6.9 K/mm3 (4.5-11.0) 04/29/20 05:38 RBC 3.04 M/mm3 (3.65-5.03) L 04/29/20 05:38 Hgb 10.3 gm/dl (11.8-15.2) L 04/29/20 05:38 Hct 29.2 % (35.5-45.6) L 04/29/20 05:38 MCV 96 fl (84-94) H 04/29/20 05:38 MCH 34 pg (28-32) H 04/29/20 05:38 MCHC 35 % (32-34) H 04/29/20 05:38 RDW 13.6 % (13.2-15.2) 04/29/20 05:38 Plt Count 270 K/mm3 (140-440) 04/29/20 05:38 Lymph % (Auto) 19.8 % (13.4-35.0) 04/29/20 05:38 [place] % (Auto) 9.5 % (0.0-7.3) H 04/29/20 05:38 Eos % (Auto) 3.1 % (0.0-4.3) 04/29/20 05:38 Baso % (Auto) 0.4 % (0.0-1.8) 04/29/20 05:38 Lymph # 1.4 K/mm3 (1.2-5.4) 04/29/20 05:38 [place] # 0.7 K/mm3 (0.0-0.8) 04/29/20 05:38 Eos # 0.2 K/mm3 (0.0-0.4) 04/29/20 05:38 Baso # 0.0 K/mm3 (0.0-0.1) 04/29/20 05:38 Seg Neutrophils % 67.2 % (40.0-70.0) 04/29/20 05:38 Seg Neutrophils # 4.6 K/mm3 (1.8-7.7) 04/29/20 05:38 D-Dimer 7654.83 ng/mlDDU (0-234) H 04/25/20 19:17 ABG pH 7.427 pH Units (7.350-7.450) 04/25/20 22:00 ABG pCO2 33.2 mm Hg 04/25/20 22:00 ABG pO2 99.9 mm Hg (80.0-90.0) H 04/25/20 22:00 ABG HCO3 21.4 mmol/L (20.0-26.0) 04/25/20 22:00 ABG O2 Saturation 97.7 % (95.0-99.0) 04/25/20 22:00 ABG O2 Content 17.1 (0.0-44) 04/25/20 22:00 ABG Base Excess -2.2 mmol/L (-2.0-3.0) L 04/25/20 22:00 ABG Hemoglobin 12.6 gm/dl (14.0-18.0) L 04/25/20 22:00 ABG Carboxyhemoglobin 1.7 % (0.0-5.0) 04/25/20 22:00 ABG Methemoglobin 0.4 % (0.0-1.5) 04/25/20 22:00 Oxyhemoglobin 95.6 % (95.0-99.0) 04/25/20 22:00 FiO2 21 % 04/25/20 22:00 Sodium 133 mmol/L (137-145) L D 04/29/20 05:38 Potassium 3.6 mmol/L (3.6-5.0) 04/29/20 05:38 Chloride 98.7 mmol/L (98-107) 04/29/20 05:38 Carbon Dioxide 25 mmol/L (22-30) 04/29/20 05:38 Anion Gap 13 mmol/L 04/29/20 05:38 BUN 11 mg/dL (9-20) 04/29/20 05:38 Creatinine 0.6 mg/dL (0.8-1.3) L 04/29/20 05:38 Estimated GFR > 60 ml/min 04/29/20 05:38 BUN/Creatinine Ratio 18 % 04/29/20 05:38 Glucose 83 mg/dL (75-100) 04/29/20 05:38 POC Glucose 140 (70-105) H 04/29/20 11:48 Calcium 8.7 mg/dL (8.4-10.2) 04/29/20 05:38 Phosphorus 1.80 mg/dL (2.5-4.5) L 04/29/20 05:38 Ferritin 658.6 ng/mL (30.0-300.0) H 04/25/20 19:17 Total Bilirubin 3.40 mg/dL (0.1-1.2) H 04/25/20 19:17 AST 74 units/L (5-40) H 04/25/20 19:17 ALT 48 units/L (7-56) 04/25/20 19:17 Alkaline Phosphatase 610 units/L (35-129) H 04/25/20 19:17 Lactate Dehydrogenase 421 units/L (91-180) H 04/25/20 19:17 Total Creatine Kinase 65 units/L (55-170) 04/25/20 19:17 CK-MB (CK-2) 1.4 ng/mL (0.0-4.0) 04/25/20 19:17 CK-MB (CK-2) Rel Index 2.1 (0-4) 04/25/20 19:17 Troponin T < 0.010 ng/mL (0.00-0.029) 04/25/20 19:17 C-Reactive Protein 12.40 mg/dL (0.00-1.30) H 04/25/20 19:17 NT-Pro-B Natriuret Pep 244.7 pg/mL (0-900) 04/25/20 19:17 Total Protein 8.2 g/dL (6.3-8.2) 04/25/20 19:17 Albumin 2.8 g/dL (3.9-5) L 04/25/20 19:17 Albumin/Globulin Ratio 0.5 % 04/25/20 19:17 Procalcitonin 0.77 ng/mL (<0.15) 04/28/20 04:59 Urine Color Yellow (Yellow) 04/26/20 15:40 Urine Turbidity Slightly-cloudy (Clear) 04/26/20 15:40 Urine pH 5.0 (5.0-7.0) 04/26/20 15:40 Ur Specific [place] 1.015 (1.003-1.030) 04/26/20 15:40 Urine Protein <15 mg/dl mg/dL (Negative) 04/26/20 15:40 Urine Glucose (UA) Neg mg/dL (Negative) 04/26/20 15:40 Urine Ketones Neg mg/dL (Negative) 04/26/20 15:40 Urine Blood Mod (Negative) 04/26/20 15:40 Urine Nitrite Neg (Negative) 04/26/20 15:40 Urine Bilirubin Neg (Negative) 04/26/20 15:40 Urine Urobilinogen < 2.0 mg/dL (<2.0) 04/26/20 15:40 Ur Leukocyte Esterase Sm (Negative) 04/26/20 15:40 Urine WBC (Auto) 11.0 /HPF (0.0-6.0) H 04/26/20 15:40 Urine RBC (Auto) 3.0 /HPF (0.0-6.0) 04/26/20 15:40 U Epithel Cells (Auto) 5.0 /HPF (0-13.0) 04/26/20 15:40 Urine Bacteria (Auto) 1+ /HPF (Negative) 04/26/20 15:40 Urine Mucus Few /HPF 04/26/20 15:40 Urine Eosinophils None seen (None Seen) 04/26/20 15:40 Urine Creatinine 72.7 mg/dL (0.1-20.0) H 04/26/20 15:40 Urine Creatinine 73.5 mg/dL (0.1-20.0) H 04/26/20 15:40 Protein/Creatinin Ratio 0.65 04/26/20 15:40 Urine Sodium 38 mmol/L 04/26/20 15:40 Urine Urea Nitrogen 1064 04/26/20 15:40 Urine Total Protein 47 mg/dL (5-11.8) H 04/26/20 15:40 Coronavirus (PCR) Negative (Negative) 04/26/20 Unknown Microbiology: Microbiology 04/26/20 15:40 Urine,Clean Catch Urine Culture - Final 04/25/20 19:31 Peripheral/Venous Blood Culture - Preliminary NO GROWTH AFTER 72 HOURS 04/25/20 19:17 Peripheral/Venous Blood Culture - Preliminary NO GROWTH AFTER 72 HOURS Mendoza/IV: Voiding Method Condom Catheter IV Catheter Type [Right Upper INT / Saline Lock arm] IV Catheter Type [Right INT / Saline Lock Antecubital] IV Catheter Type [Right INT / Saline Lock Forearm] Active Medications - Current Medications Current Medications: Generic Name Dose Route Start Last Admin Trade Name Freq PRN Reason Stop Dose Admin Albuterol 2.5 mg 04/26/20 07:30 Proventil IH Q4HRT PRN Shortness Of Breath Lipase/Protease/Amylase 1 each 04/28/20 12:20 Pancreceilo Collado 10,500 Unit FEEDTUBE PRN PRN For Clogged Feeding Tube Dextrose 0 ml 04/25/20 23:07 04/27/20 11:19 D50w (25gm) Syringe IV 50 ml Q30MIN PRN Administration Hypoglycemia Protocol Heparin Sodium (Porcine) 5,000 unit 04/25/20 23:00 04/29/20 09:55 Heparin SUB-Q 5,000 unit Q12HR PAOLA Administration Ceftriaxone Sodium 1 gm in 50 mls @ 100 mls/hr 04/27/20 10:00 04/29/20 09:48 Rocephin/Ns 1 Gm/50 Ml IV 05/01/20 10:29 100 mls/hr Q24HR PAOLA Administration Sodium Phosphate 45 mmol/ 515 mls @ 84 mls/hr 04/29/20 12:41 Sodium Chloride IV 04/29/20 18:48 ONCE ONE Insulin Human Lispro 0 unit 04/26/20 07:30 04/29/20 11:30 Humalog SUB-Q Not Given ACHS PAOLA Protocol Lisinopril 5 mg 04/28/20 10:00 04/29/20 09:49 Zestril PO 5 mg QDAY PAOLA Administration Simple Syrup 15 ml 04/28/20 12:20 Simple Syrup FEEDTUBE PRN PRN Hypoglycemia Simple Syrup 30 ml 04/28/20 12:20 Simple Syrup FEEDTUBE PRN PRN Hypoglycemia Sodium Bicarbonate 325 mg 04/28/20 12:20 Sodium Bicarbonate FEEDTUBE PRN PRN For Clogged Feeding Tube Tamsulosin HCl 0.4 mg 04/28/20 10:00 04/29/20 09:49 Flomax PO 0.4 mg QDAY PAOLA Administration Nutrition/Malnutrition Assess - Dietary Evaluation Nutrition/Malnutrition Findings: Nutrition Notes Start: 04/26/20 13:43 Freq: Status: Active Protocol: Document 04/28/20 12:10 CONNOR (Rec: 04/28/20 12:20 [facility] SRW- [email or web address]) Nutrition Notes Need for Assessment generated from: MD Order Initial or Follow up Reassessment Current Diagnosis Acute Kidney Injury,Diabetes, Malnutrition Other Pertinent Diagnosis Dysphagia, bilat pneu, hypotension Current Diet NPO Labs/Tests reviewed Pertinent Medications D5W at 125ml/hr Height 5 ft 8 in Weight 44 kg [place] Body Weight (kg) 70.00 BMI 14.7 Subjective/Other Information RD consulted for TF. Burn Absent Trauma Absent Minimum of two criteria Yes Body Fat Depletion Moderate depletion (severe) Muscle Mass Moderate Depletion (severe) Reduced [employer]er Strength Measurably Reduced (severe) Protein-Calorie Malnutrition Severe #1 Nutrition Diagnosis Inadequate oral intake Etiology dysphagia As Evidenced by Signs and Symptoms pt remains NPO Diagnosis Progress(for reassessment Continues documentation) Is patient on ventilator? No Is Patient Ambulatory and/or Out of Bed No REE-([facility]-confined to bed) 1374.264 Kcal/Kg value to use for calculation 40 Approximate Energy Requirements Using 1760 kcal/Kg Calculation Used for Recommendations Kcal/kg Additional Notes Pro needs 1.2-1.5g/k-66g/ day Fluid needs 1ml/kcal Nutrition Intervention Nutrition Support: Jevity 1.2 at 50ml/hr with 80ml water flush q4h. Kcal 1,440 Protein (gm) 67 Carbohydrates (gm) 203 Fluid (mL) 968 Fiber (gm) 22 Goal #1 TF tolerance Goal #2 TF (at goal rate) to meet 100% energy and pro needs Goal #3 Wt maintenance and/or gain Anticipated Discharge Needs: Continue TF Follow-Up By: 04/30/20 Additional Comments F/U: new TF, need for CHO- controlled TF formula
[2020-04-30 06:12] LABS: Blood Urea Nitrogen 13 mg/dL (9-20); Hemolysis Index 1
[2020-04-30 06:33] LABS: BUN/Creatinine Ratio 22
--- NOTE | 2020-04-30 09:41 | Progress Note ---
Assessment and Plan Cultures: Blood culture 04/25/2020 no growth today COVID-19 negative A/P: 79-year-old man past medical history diabetes, hypertension, CKD, prostate cancer admitted with shortness of breath. #Bilateral pneumonia: Infiltrate stable from 2 years ago, however may have resolved and then returned or may have chronic infiltrates in the lungs. ? Aspiration pneumonia. His procalcitonin is elevated, however he does have a level of chronic kidney disease. COVID testing is negative. #Elevated d-dimer: ? #JOSE on CKD: Renally dose antibiotics -resolved #Diabetes: tight glycemic control for best outcomes. #Dysphagia. Recs: -Start ceftriaxone DAY 3 OF 5 -Completed azithromycin.- -Repeat procalcitonin and [id number] lower extremity ultrasound rule out DVT, very high d-dimer -Aspiration precautions/swallow evaluation Adri Sanches MD [facility] ([facility]) Office [phone] Subjective Date of service: 04/30/20 Principal diagnosis: JOSE Interval history: Currently nonverbal, somnolent, in no acute distress on nasal cannula oxygen 4 L, no fever Objective - Exam Narrative Exam: Constitutional: Somnolent, nonverbal on nasal cannula oxygen 4 L Head, Ears, Nose: Normocephalic, atraumatic. External ears, nose normal Eyes: Conjunctivae/corneas clear. No icterus. No ptosis. Neck: Supple, no meningeal signs Cardiovascular: RRR Respiratory: Diminished bilaterally GI: Soft, non-tender Musculoskeletal: no edema, deformities Skin: No rash or abscess Hem/Lymphatic: No palpable cervical or supraclavicular nodes. No lymphangitis Psych: Somnolent Neurological: Somnolent - Constitutional Vitals: Vital Signs Temp Pulse Resp BP Pulse Ox 98.4 F 105 H 16 143/78 99 04/30/20 04:36 04/30/20 04:36 04/30/20 04:36 04/30/20 04:36 04/30/20 04:36 Temperature -Last 24 Hours Temperature 98.4 F Temperature 98.3 F Temperature 98.1 F Temperature 98.4 F - Labs CBC & Chem 7: 04/29/20 05:38 04/30/20 05:18 Labs: Abnormal lab results 04/29/20 04/29/20 04/30/20 Range/Units 11:48 17:09 05:18 Chloride 107.2 H (98-107) mmol/L Creatinine 0.6 L (0.8-1.3) mg/dL Glucose 71 L (75-100) mg/dL POC Glucose 140 H 135 H (70-105) Calcium 8.0 L (8.4-10.2) mg/dL
[2020-04-30] MEDS: INSULIN LISPRO 100 UNIT/ML VIAL 3 mL SUB-Q SCH ×3 (10:15→18:21)
[2020-04-30] MEDS ORDERED: SODIUM CHLORIDE 0.9% 250ML 250 ML ONE (10:57)
[2020-04-30] MEDS: LISINOPRIL 5 MG TAB PO SCH (10:58)
[2020-04-30] MEDS: HEPARIN 5,000 UNIT/1 ML VIAL SUB-Q SCH ×2 (10:58→21:19)
[2020-04-30] MEDS: TAMSULOSIN 0.4 MG CAP PO SCH (10:58)
[2020-04-30] MEDS: cefTRIAXone/NS 1 GM/50 ML 1 GM/50 ML BAG IV SCH (10:58)
--- NOTE | 2020-04-30 17:20 | Progress Note ---
Assessment and Plan Assessment and plan: -COVID-19 test negative 04/26/2020 --Elevated D-dimers; CTA chest, evaluate for PE, rule out DVT --hypophosphatemia/hyponatremia Replenished with sodium phosphate Monitor electrolytes --Dysphagia/failed bedside swallow Speech and swallow evaluated Tolerating pured diet --Sepsis secondary to bilateral pneumonia: Tachycardia ,tachypnea ,lung infiltrates on chest x-ray Rocephin 3/, completed 3 days of Zithromax per ID --Hypotension; improved Rigorous IV hydration Increase oral intake If no improvement will try Midrin --Type 2 diabetes mellitus; Accu-Chek sliding scale coverage ADA diet and insulin as needed --Acute kidney injury; resolved Vasomotor nephropathy. Avoid nephrotoxins, Gentle hydration, monitor renal function --Severe protein calorie malnutrition; cachexia Patient supplements, nutrition consult --DVT prophylaxis;Heparin --DC planning per case management We will closely monitor the patient and adjust management as needed Plan of care reviewed with the patient and his nurse 04/28/20; COVID-19 test negative, bilateral pneumonia and sepsis, follow-up speech and swallow eval Diet as tolerated 04/29; patient feels slightly better, able to tolerate pured diet, continue current antibiotics Physical therapy evaluation and management 04/30; elevated D-dimers, CTA to rule out PE, Doppler to rule out DVT, possible discharge in 1 to 2 days to SNF Brief history: 79-year-old male patient [facility] resident was admitted through emergency room with worsening shortness of breath bilateral pneumonia, COVID-19 test negative however with high inflammatory markers. Renal failure resolved mild hypotension improved, bilateral pneumonia , receiving Rocephin and Zithromax elevated D-dimers, check CTA and lower extremity Doppler History Interval history: COVID negative patient; I have seen and examined the patient at the bedside Patient feels slightly better Severely emaciated dehydrated cachectic Tolerating pured diet Vital signs reviewed Hospitalist Physical - Constitutional Vitals: Temp Pulse Resp BP Pulse Ox 97.3 F L 102 H 18 113/81 100 04/30/20 11:21 04/30/20 11:21 04/30/20 11:21 04/30/20 11:21 04/30/20 11:21 General appearance: Present: mild distress, cachectic, disheveled, other (Malnourished) - EENT Eyes: Present: PERRL, EOM intact - Neck Neck: Present: supple, normal ROM - Respiratory Respiratory effort: normal Respiratory: bilateral: diminished, negative: rales, rhonchi, wheezing - Cardiovascular Rhythm: regular Heart Sounds: Present: S1 & S2 - Extremities Extremities: no ischemia, No edema - Abdominal General gastrointestinal: soft, non-tender, non-distended, normal bowel sounds - Integumentary Integumentary: Present: clear, warm - Psychiatric Psychiatric: other (Minimally communicative) - Neurologic Neurologic: moves all extremities HEART Score - HEART Score Risk factors: 1-2 risk factors Troponin: Troponin T < 0.010 ng/mL (0.00-0.029) 04/25/20 19:17 Troponin: < normal limit - Critical Actions Critical Actions: 0-3 pts:0.9-1.7%risk of adverse cardiac event.Candidate for discharge Results - Labs CBC & Chem 7: 04/29/20 05:38 04/30/20 05:18 Labs: Laboratory Last Values WBC 6.9 K/mm3 (4.5-11.0) 04/29/20 05:38 RBC 3.04 M/mm3 (3.65-5.03) L 04/29/20 05:38 Hgb 10.3 gm/dl (11.8-15.2) L 04/29/20 05:38 Hct 29.2 % (35.5-45.6) L 04/29/20 05:38 MCV 96 fl (84-94) H 04/29/20 05:38 MCH 34 pg (28-32) H 04/29/20 05:38 MCHC 35 % (32-34) H 04/29/20 05:38 RDW 13.6 % (13.2-15.2) 04/29/20 05:38 Plt Count 270 K/mm3 (140-440) 04/29/20 05:38 Lymph % (Auto) 19.8 % (13.4-35.0) 04/29/20 05:38 [place] % (Auto) 9.5 % (0.0-7.3) H 04/29/20 05:38 Eos % (Auto) 3.1 % (0.0-4.3) 04/29/20 05:38 Baso % (Auto) 0.4 % (0.0-1.8) 04/29/20 05:38 Lymph # 1.4 K/mm3 (1.2-5.4) 04/29/20 05:38 [place] # 0.7 K/mm3 (0.0-0.8) 04/29/20 05:38 Eos # 0.2 K/mm3 (0.0-0.4) 04/29/20 05:38 Baso # 0.0 K/mm3 (0.0-0.1) 04/29/20 05:38 Seg Neutrophils % 67.2 % (40.0-70.0) 04/29/20 05:38 Seg Neutrophils # 4.6 K/mm3 (1.8-7.7) 04/29/20 05:38 D-Dimer 1995.73 ng/mlDDU (0-234) H 04/30/20 10:14 ABG pH 7.427 pH Units (7.350-7.450) 04/25/20 22:00 ABG pCO2 33.2 mm Hg 04/25/20 22:00 ABG pO2 99.9 mm Hg (80.0-90.0) H 04/25/20 22:00 ABG HCO3 21.4 mmol/L (20.0-26.0) 04/25/20 22:00 ABG O2 Saturation 97.7 % (95.0-99.0) 04/25/20 22:00 ABG O2 Content 17.1 (0.0-44) 04/25/20 22:00 ABG Base Excess -2.2 mmol/L (-2.0-3.0) L 04/25/20 22:00 ABG Hemoglobin 12.6 gm/dl (14.0-18.0) L 04/25/20 22:00 ABG Carboxyhemoglobin 1.7 % (0.0-5.0) 04/25/20 22:00 ABG Methemoglobin 0.4 % (0.0-1.5) 04/25/20 22:00 Oxyhemoglobin 95.6 % (95.0-99.0) 04/25/20 22:00 FiO2 21 % 04/25/20 22:00 Sodium 140 mmol/L (137-145) D 04/30/20 05:18 Potassium 3.7 mmol/L (3.6-5.0) 04/30/20 05:18 Chloride 107.2 mmol/L (98-107) H 04/30/20 05:18 Carbon Dioxide 22 mmol/L (22-30) 04/30/20 05:18 Anion Gap 15 mmol/L 04/30/20 05:18 BUN 13 mg/dL (9-20) 04/30/20 05:18 Creatinine 0.6 mg/dL (0.8-1.3) L 04/30/20 05:18 Estimated GFR > 60 ml/min 04/30/20 05:18 BUN/Creatinine Ratio 22 % 04/30/20 05:18 Glucose 71 mg/dL (75-100) L 04/30/20 05:18 POC Glucose 117 (70-105) H 04/30/20 11:38 Calcium 8.0 mg/dL (8.4-10.2) L 04/30/20 05:18 Phosphorus 1.80 mg/dL (2.5-4.5) L 04/29/20 05:38 Ferritin 658.6 ng/mL (30.0-300.0) H 04/25/20 19:17 Total Bilirubin 3.40 mg/dL (0.1-1.2) H 04/25/20 19:17 AST 74 units/L (5-40) H 04/25/20 19:17 ALT 48 units/L (7-56) 04/25/20 19:17 Alkaline Phosphatase 610 units/L (35-129) H 04/25/20 19:17 Lactate Dehydrogenase 421 units/L (91-180) H 04/25/20 19:17 Total Creatine Kinase 65 units/L (55-170) 04/25/20 19:17 CK-MB (CK-2) 1.4 ng/mL (0.0-4.0) 04/25/20 19:17 CK-MB (CK-2) Rel Index 2.1 (0-4) 04/25/20 19:17 Troponin T < 0.010 ng/mL (0.00-0.029) 04/25/20 19:17 C-Reactive Protein 4.20 mg/dL (0.00-1.30) H 04/30/20 10:14 NT-Pro-B Natriuret Pep 244.7 pg/mL (0-900) 04/25/20 19:17 Total Protein 8.2 g/dL (6.3-8.2) 04/25/20 19:17 Albumin 2.8 g/dL (3.9-5) L 04/25/20 19:17 Albumin/Globulin Ratio 0.5 % 04/25/20 19:17 Procalcitonin 0.47 ng/mL (<0.15) 04/30/20 10:14 Urine Color Yellow (Yellow) 04/26/20 15:40 Urine Turbidity Slightly-cloudy (Clear) 04/26/20 15:40 Urine pH 5.0 (5.0-7.0) 04/26/20 15:40 Ur Specific [place] 1.015 (1.003-1.030) 04/26/20 15:40 Urine Protein <15 mg/dl mg/dL (Negative) 04/26/20 15:40 Urine Glucose (UA) Neg mg/dL (Negative) 04/26/20 15:40 Urine Ketones Neg mg/dL (Negative) 04/26/20 15:40 Urine Blood Mod (Negative) 04/26/20 15:40 Urine Nitrite Neg (Negative) 04/26/20 15:40 Urine Bilirubin Neg (Negative) 04/26/20 15:40 Urine Urobilinogen < 2.0 mg/dL (<2.0) 04/26/20 15:40 Ur Leukocyte Esterase Sm (Negative) 04/26/20 15:40 Urine WBC (Auto) 11.0 /HPF (0.0-6.0) H 04/26/20 15:40 Urine RBC (Auto) 3.0 /HPF (0.0-6.0) 04/26/20 15:40 U Epithel Cells (Auto) 5.0 /HPF (0-13.0) 04/26/20 15:40 Urine Bacteria (Auto) 1+ /HPF (Negative) 04/26/20 15:40 Urine Mucus Few /HPF 04/26/20 15:40 Urine Eosinophils None seen (None Seen) 04/26/20 15:40 Urine Creatinine 72.7 mg/dL (0.1-20.0) H 04/26/20 15:40 Urine Creatinine 73.5 mg/dL (0.1-20.0) H 04/26/20 15:40 Protein/Creatinin Ratio 0.65 04/26/20 15:40 Urine Sodium 38 mmol/L 04/26/20 15:40 Urine Urea Nitrogen 1064 04/26/20 15:40 Urine Total Protein 47 mg/dL (5-11.8) H 04/26/20 15:40 Coronavirus (PCR) Negative (Negative) 04/26/20 Unknown Microbiology: Microbiology 04/25/20 19:31 Peripheral/Venous Blood Culture - Preliminary NO GROWTH AFTER 4 DAYS 04/25/20 19:17 Peripheral/Venous Blood Culture - Preliminary NO GROWTH AFTER 4 DAYS Mendoza/IV: Voiding Method Condom Catheter IV Catheter Type [Right Upper INT / Saline Lock arm] IV Catheter Type [Right INT / Saline Lock Antecubital] IV Catheter Type [Right INT / Saline Lock Forearm] Active Medications - Current Medications Current Medications: Generic Name Dose Route Start Last Admin Trade Name Freq PRN Reason Stop Dose Admin Albuterol 2.5 mg 04/26/20 07:30 Proventil IH Q4HRT PRN Shortness Of Breath Lipase/Protease/Amylase 1 each 04/28/20 12:[address] 10,500 Unit FEEDTUBE PRN PRN For Clogged Feeding Tube Dextrose 0 ml 04/25/20 23:07 04/27/20 11:19 D50w (25gm) Syringe IV 50 ml Q30MIN PRN Administration Hypoglycemia Protocol Heparin Sodium (Porcine) 5,000 unit 04/25/20 23:00 04/30/20 10:58 Heparin SUB-Q 5,000 unit Q12HR PAOLA Administration Ceftriaxone Sodium 1 gm in 50 mls @ 100 mls/hr 04/27/20 10:00 04/30/20 10:58 Rocephin/Ns 1 Gm/50 Ml IV 05/01/20 10:29 100 mls/hr Q24HR PAOLA Administration Insulin Human Lispro 0 unit 04/26/20 07:30 04/30/20 13:26 Humalog SUB-Q Not Given ACHS PAOLA Protocol Lisinopril 5 mg 04/28/20 10:00 04/30/20 10:58 Zestril PO 5 mg QDAY PAOLA Administration Simple Syrup 15 ml 04/28/20 12:20 Simple Syrup FEEDTUBE PRN PRN Hypoglycemia Simple Syrup 30 ml 04/28/20 12:20 Simple Syrup FEEDTUBE PRN PRN Hypoglycemia Sodium Bicarbonate 325 mg 04/28/20 12:20 Sodium Bicarbonate FEEDTUBE PRN PRN For Clogged Feeding Tube Tamsulosin HCl 0.4 mg 04/28/20 10:00 04/30/20 10:58 Flomax PO 0.4 mg QDAY PAOAL Administration Nutrition/Malnutrition Assess - Dietary Evaluation Nutrition/Malnutrition Findings: Nutrition Notes Start: 04/26/20 13:43 Freq: Status: Active Protocol: Document 04/30/20 12:12 LM (Rec: 04/30/20 12:15 LM [id number]) Nutrition Notes Initial or Follow up Reassessment Current Diagnosis Acute Kidney Injury,Diabetes, Malnutrition Other Pertinent Diagnosis Dysphagia, bilat pneu, hypotension Current Diet Pureed Labs/Tests reviewed Pertinent Medications reviewed Height 5 ft 8 in Weight 44 kg [place] Body Weight (kg) 70.00 BMI 14.7 Subjective/Other Information Pt no longer requiring TF. Per chart pt is tolerating pureed . Pt has 100% intakes recorded yesterday. Percent of energy/protein needs met: 100%/100% Burn Absent Trauma Absent Food Allergy No Current % PO Negligible Minimum of two criteria Yes Body Fat Depletion Moderate depletion (severe) Muscle Mass Moderate Depletion (severe) Reduced Mine Wirer Strength Measurably Reduced (severe) Protein-Calorie Malnutrition Severe #1 Nutrition Diagnosis Inadequate oral intake As Evidenced by Signs and Symptoms diet advanced to pureed Diagnosis Progress(for reassessment Improved documentation) Is patient on ventilator? No Is Patient Ambulatory and/or Out of Bed No REE-([facility]-confined to bed) 1374.264 Kcal/Kg value to use for calculation 40 Approximate Energy Requirements Using 1760 kcal/Kg Calculation Used for Recommendations Kcal/kg Additional Notes Pro needs 1.2-1.5g/k-66g/ day Fluid needs 1ml/kcal Nutrition Intervention Change Diet Order: continue as tolerated Goal #1 Meet at least 80% of energy and protein needs Goal #2 Wt maintenance and/or gain Anticipated Discharge Needs: pureed Follow-Up By: 05/02/20 Additional Comments F/U for intakes, ONS need
[2020-05-01 06:24] LABS: BUN/Creatinine Ratio 30; Blood Urea Nitrogen 15 mg/dL (9-20); Calcium 8.2 mg/dL (8.4-10.2); Hemolysis Index 3
[2020-05-01] MEDS: INSULIN LISPRO 100 UNIT/ML VIAL 3 mL SUB-Q SCH ×5 (09:02→22:35)
[2020-05-01] MEDS: LISINOPRIL 5 MG TAB PO SCH (10:45)
[2020-05-01] MEDS: TAMSULOSIN 0.4 MG CAP PO SCH (10:45)
[2020-05-01] MEDS: HEPARIN 5,000 UNIT/1 ML VIAL SUB-Q SCH ×2 (10:46→21:23)
[2020-05-01] MEDS: cefTRIAXone/NS 1 GM/50 ML 1 GM/50 ML BAG IV SCH (10:46)
--- NOTE | 2020-05-01 11:25 | Progress Note ---
Assessment and Plan Cultures: Blood culture 04/25/2020 no growth today COVID-19 negative A/P: 79-year-old man past medical history diabetes, hypertension, CKD, prostate cancer admitted with shortness of breath. #Bilateral pneumonia: Infiltrate stable from 2 years ago, however may have resolved and then returned or may have chronic infiltrates in the lungs. ? Aspiration pneumonia. His procalcitonin is elevated, however he does have a level of chronic kidney disease, improving. COVID testing is negative. #Elevated d-dimer: ? #JOSE on CKD: Renally dose antibiotics -resolved #Diabetes: tight glycemic control for best outcomes. #Dysphagia. Recs: -Agree with Chest CTA -Continue ceftriaxone DAY 4 OF 5 -Completed azithromycin.- -Aspiration precautions/swallow evaluation Adri Sanches MD [facility] ([facility]) Office [phone] Subjective Date of service: 05/01/20 Principal diagnosis: JOSE Interval history: Currently nonverbal, in no acute distress on nasal cannula oxygen 4 L, no fever Objective - Exam Narrative Exam: Constitutional: Somnolent, nonverbal on nasal cannula oxygen 4 L Head, Ears, Nose: Normocephalic, atraumatic. External ears, nose normal Eyes: Conjunctivae/corneas clear. No icterus. No ptosis. Neck: Supple, no meningeal signs Cardiovascular: RRR Respiratory: Diminished bilaterally GI: Soft, non-tender Musculoskeletal: no edema, deformities Skin: No rash or abscess Hem/Lymphatic: No palpable cervical or supraclavicular nodes. No lymphangitis Psych: Somnolent Neurological: Somnolent - Constitutional Vitals: Vital Signs Temp Pulse Resp BP Pulse Ox 98.1 F 98 H 18 128/78 100 05/01/20 04:44 05/01/20 10:45 05/01/20 04:44 05/01/20 10:45 05/01/20 04:44 Temperature -Last 24 Hours Temperature 98.1 F Temperature 98.6 F Temperature 98.5 F - Labs CBC & Chem 7: 04/29/20 05:38 05/01/20 04:58 Labs: Abnormal lab results 04/30/20 04/30/20 04/30/20 Range/Units 10:14 10:14 11:38 D-Dimer 1995.73 H (0-234) ng/mlDDU Chloride (98-107) mmol/L Creatinine (0.8-1.3) mg/dL POC Glucose 117 H (70-105) Calcium (8.4-10.2) mg/dL Phosphorus (2.5-4.5) mg/dL C-Reactive Protein 4.20 H (0.00-1.30) mg/dL 04/30/20 04/30/20 05/01/20 Range/Units 17:39 21:40 04:58 D-Dimer (0-234) ng/mlDDU Chloride 109.8 H (98-107) mmol/L Creatinine 0.5 L (0.8-1.3) mg/dL POC Glucose 124 H 135 H (70-105) Calcium 8.2 L (8.4-10.2) mg/dL Phosphorus 1.40 L (2.5-4.5) mg/dL C-Reactive Protein (0.00-1.30) mg/dL
--- NOTE | 2020-05-01 16:17 | Progress Note ---
Assessment and Plan -COVID-19 test negative 04/26/2020 --Elevated D-dimers; CTA chest, evaluate for PE, rule out DVT --hypophosphatemia/hyponatremia Replenished with sodium phosphate Monitor electrolytes --Dysphagia/failed bedside swallow Speech and swallow evaluated Tolerating pured diet --Sepsis secondary to bilateral pneumonia: Tachycardia ,tachypnea ,lung infiltrates on chest x-ray Rocephin 4/5, completed 3 days of Zithromax per ID --Hypotension; improved Rigorous IV hydration Increase oral intake If no improvement will try Midrin --Type 2 diabetes mellitus; Accu-Chek sliding scale coverage ADA diet and insulin as needed --Acute kidney injury; resolved Vasomotor nephropathy. Avoid nephrotoxins, Gentle hydration, monitor renal function --Severe protein calorie malnutrition; cachexia nutrition supplements, nutrition consult --DVT prophylaxis;Heparin --DC planning per case management We will closely monitor the patient and adjust management as needed Plan of care reviewed with the patient and his nurse Brief history: 79-year-old male patient [facility] resident was admitted through emergency room with worsening shortness of breath bilateral pneumonia, COVID-19 test negative however with high inflammatory markers. Renal failure resolved mild hypotension improved, bilateral pneumonia , receiving Rocephin and Zithromax elevated D-dimers, check CTA and lower extremity Doppler 04/28/20; COVID-19 test negative, bilateral pneumonia and sepsis, follow-up speech and swallow eval Diet as tolerated 04/29; patient feels slightly better, able to tolerate pured diet, continue current antibiotics Physical therapy evaluation and management 04/30; elevated D-dimers, CTA to rule out PE, Doppler to rule out DVT, possible discharge in 1 to 2 days to SNF 05/01: CTA chest still pending, will cont to follow. Patient remains tachycardic. will cont to follow. last dose of Rocephin tomorrow Subjective Date of service: 05/01/20 Principal diagnosis: JOSE Interval history: Patient seen and examined at the bedside Patient minimally communicative but widely alert and awake Severely emaciated dehydrated cachectic Tolerating pured diet Vital signs reviewed Objective - Exam Narrative Exam: General appearance: Present: mild distress, cachectic, disheveled, other (Malnourished) - EENT Eyes: Present: PERRL, EOM intact - Neck Neck: Present: supple, normal ROM - Respiratory Respiratory effort: normal Respiratory: bilateral: diminished, negative: rales, rhonchi, wheezing - Cardiovascular Rhythm: regular Heart Sounds: Present: S1 & S2 - Extremities Extremities: no ischemia, No edema - Abdominal General gastrointestinal: soft, non-tender, non-distended, normal bowel sounds - Integumentary Integumentary: Present: clear, warm - Psychiatric Psychiatric: other (Minimally communicative) - Neurologic Neurologic: moves all extremities - Constitutional Vitals: Vital Signs - 12hr 05/01/20 05/01/20 04:44 10:45 Temperature 98.1 F Pulse Rate 121 H 98 H Respiratory 18 Rate Blood Pressure 126/77 128/78 O2 Sat by Pulse 100 Oximetry - Labs CBC & Chem 7: 04/29/20 05:38 05/02/20 04:51 Labs: Abnormal lab results 04/30/20 04/30/20 05/01/20 Range/Units 17:39 21:40 04:58 Chloride 109.8 H (98-107) mmol/L Creatinine 0.5 L (0.8-1.3) mg/dL POC Glucose 124 H 135 H (70-105) Calcium 8.2 L (8.4-10.2) mg/dL Phosphorus 1.40 L (2.5-4.5) mg/dL HEART Score - HEART Score Risk factors: 1-2 risk factors Troponin: Troponin T < 0.010 ng/mL (0.00-0.029) 04/25/20 19:17 Troponin: < normal limit - Critical Actions Critical Actions: 0-3 pts:0.9-1.7%risk of adverse cardiac event.Candidate for discharge
--- NOTE | 2020-05-01 18:13 | Vascular Lab Report ---
DUPLEX DOPPLER LOWER EXTREMITY VEINS, BILATERAL INDICATION / CLINICAL INFORMATION: Elevated D-dimers, evaluate for DVT. TECHNIQUE: Duplex doppler imaging was performed through the veins of both lower extremities using venous peggy juan j and other maneuvers. COMPARISON: None available. FINDINGS: RIGHT COMMON FEMORAL VEIN: Negative. RIGHT FEMORAL VEIN: Negative. RIGHT POPLITEAL VEIN: Negative. RIGHT CALF VEINS: Negative. LEFT COMMON FEMORAL VEIN: Negative. LEFT FEMORAL VEIN: Negative. LEFT POPLITEAL VEIN: Negative. LEFT CALF VEINS: Negative. ADDITIONAL FINDINGS: None. IMPRESSION: 1. No sonographic evidence for DVT in either lower extremity. Signer Name: Dylan Chaparro MD Signed: 05/01/2020 6:08 PM Workstation Name: [id number]
[2020-05-02 06:11] LABS: Blood Urea Nitrogen 12 mg/dL (9-20); Calcium 8.6 mg/dL (8.4-10.2); Hemolysis Index 0
[2020-05-02 06:16] LABS: BUN/Creatinine Ratio 20
--- NOTE | 2020-05-02 08:05 | Cat Scan Report ---
CTA CHEST WITH CONTRAST INDICATION : Elevated D-dimers/evaluate for PE. TECHNIQUE: Axial imaging performed through the chest, with contrast bolus timing set to maximize opa cification of the pulmonary arteries. Sagittal and coronal reformatted images. 3-plane MIP reformatte d images were obtained. All CT scans at this location are performed using CT dose reduction for ALAR A by means of automated exposure control. 100 mL of intravenous contrast administered. COMPARISON: 03/30/2018 FINDINGS: Comment: An initial scan is presented demonstrating extravasation of a large amount of contrast in th e upper right arm. The examination was repeated with new access in the left arm. I was not present/wo rking during the examination or the extravasation. This examination was completed yesterday and is ju st presented to me for interpretation. Bolus: Contrast bolus timing is adequate. PTE: No filling defect is present to suggest PTE. Mediastinum: Heart and great vessels appear normal. No pathologic mediastinal adenopathy. Lungs: There is diffuse bilateral peribronchial nodularity which appears unchanged since 03/30/2018 e xam. This appears to represent a chronic interstitial process such as sarcoidosis or chronic granulom atous disease. A neoplastic process is not entirely excluded. The overall pattern is unchanged since the previous exam. No evidence for acute infiltrate, pleural fluid or pneumothorax. Bones: Degenerative changes in the spine with nothing acute. Upper abdomen: Diffuse intrahepatic and extrahepatic biliary dilatation is evident which is unchange d. Sludge or small stones are identified in the gallbladder. The common bile duct is dilated up to 2 cm in diameter. At least 2 hypodense right hepatic lobe masses are identified measuring up to 3.3 cm which are concerning for metastatic disease. IMPRESSION: No pulmonary embolus is identified. Stable appearance of the bilateral chronic appearing interstitial lung disease. Cholelithiasis and diffuse biliary dilatation which is unchanged since the previous exam. Hypodense right hepatic lobe masses concerning for metastatic disease. Further evaluation of the abdo men is recommended. Signer Name: Alfredo Asif Jr, MD Signed: 05/02/2020 8:01 AM Workstation Name: [id number]
[2020-05-02] MEDS: INSULIN LISPRO 100 UNIT/ML VIAL 3 mL SUB-Q SCH ×2 (08:35→12:46)
[2020-05-02] MEDS: HEPARIN 5,000 UNIT/1 ML VIAL SUB-Q SCH (09:32)
[2020-05-02] MEDS: TAMSULOSIN 0.4 MG CAP PO SCH (09:40)
--- NOTE | 2020-05-02 09:55 | Discharge Summary ---
Providers - Providers Date of Admission: 04/25/20 22:13 Date of discharge: 05/02/20 Attending physician: NAVI LARSON 04/26/20 06:00 Consult to Physician [CONS] Routine Comment: Consulting Provider: LEIDY TAYLOR Physician Instructions: Reason For Exam: JOSE 04/26/20 08:27 Consult to Physician [CONS] Routine Comment: Consulting Provider: CATARINO TOM Physician Instructions: Reason For Exam: High suspicion for COVID/bilateral pneumonia/NH pt 04/27/20 12:32 Speech Therapy Evaluation and Treat [CONS] Routine Reason For Exam: SWALLOW EVAL 04/27/20 14:45 Consult to Dietitian/Nutrition [CONS] Routine Physician Instructions: Assess nutrtn needs, initiate, modify, manage TF Reason For Exam: Reason for Consult: Write/Manage Tube Feeding Reason for Consult: Write/Manage Tube Feeding Primary care physician: MAVIS LANGSTON Hospitalization Condition: Fair Pertinent studies: Chest x-ray, renal ultrasound, abdominal x-ray, lower extremity venous Doppler, CTA chest Hospital course: 79-year-old male patient retirement resident was admitted through emergency room with worsening shortness of breath. Work up was suggestive for bilateral pneumonia, JOSE, hyponatremia, hypophosphatemia. COVID-19 test negative however with high inflammatory markers. Renal failure resolved mild hypotension improved, s/pRocephin and Zithromax for PNA. checked CTA and lower extremity Doppler for elevated D-dimers -test results were negative. Patient now being discharged to retirement in stable condition. Daily course: 04/28/20; COVID-19 test negative, continue antibiotics for bilateral pneumonia and sepsis, follow-up speech and swallow eval Diet as tolerated 04/29; patient feels slightly better, able to tolerate pured diet, continue current antibiotics Physical therapy evaluation and management 04/30; elevated D-dimers, CTA to rule out PE, Doppler to rule out DVT, possible discharge in 1 to 2 days to SNF 05/01: CTA chest still pending, will cont to follow. Patient remains tachycardic. will cont to follow. last dose of Rocephin Today. Lower extremity venous Doppler is negative for DVT. 05/02: CTA done today and result is negative for PE. Add low dose BB for sinus tachycardia. d/c to SNF in stable condition. Discharge diagnosis: -COVID-19 test negative 04/26/2020 --Elevated D-dimers; CTA chest negative for PE, LE venous doppler negative for DVT --hypophosphatemia/hyponatremia Replenished with sodium phosphate Monitored electrolytes --Dysphagia/failed bedside swallow Speech and swallow evaluated Tolerating pured diet --Sepsis secondary to bilateral pneumonia: Tachycardia ,tachypnea ,lung infiltrates on chest x-ray Completed 3 days of Zithromax and 5 days of Rocephin per ID --Hypotension; improved with iv fluid hydration --Type 2 diabetes mellitus; cont Accu-Chek sliding scale insulin coverage ADA/pureed diet --Acute kidney injury; resolved Vasomotor nephropathy. Avoided nephrotoxins, s/p Gentle hydration, --Severe protein calorie malnutrition; cachexia cont nutrition supplements, nutrition consulted --DVT prophylaxis; Heparin Disposition: DC/[place]-03 SN[facility] Time spent for discharge: 34 minutes Core Measure Documentation - Palliative Care Palliative Care/ Comfort Measures: Not Applicable - Core Measures Any of the following diagnoses?: none Exam - Physical Exam Narrative exam: General appearance: Present: mild distress, cachectic, disheveled, other (Malnourished) - EENT Eyes: Present: PERRL, EOM intact - Neck Neck: Present: supple, normal ROM - Respiratory Respiratory effort: normal Respiratory: bilateral: diminished, negative: rales, rhonchi, wheezing - Cardiovascular Rhythm: regular Heart Sounds: Present: S1 & S2 - Extremities Extremities: no ischemia, No edema - Abdominal General gastrointestinal: soft, non-tender, non-distended, normal bowel sounds - Integumentary Integumentary: Present: clear, warm - Psychiatric Psychiatric: other (Minimally communicative) - Neurologic Neurologic: moves all extremities - Constitutional Vitals: Temp Pulse Resp BP Pulse Ox 99.1 F 105 H 18 134/70 100 05/02/20 05:10 05/02/20 05:10 05/02/20 05:10 05/02/20 05:10 05/02/20 05:10 Plan Activity: fall precautions Weight Bearing Status: Non-Weight Bearing Diet: per dietitian instruction, other (Pured diet, add nutrition supplements) Follow up with: MAVIS LANGSTON MD [Primary Care Provider] - 3-5 Days
[2020-05-02] MEDS ORDERED: METOPROLOL TARTRATE 25 MG TAB PO SCH (10:00)
[2020-05-02] MEDS ORDERED: POTASSIUM PHOSPHATE 30 MMOL in SODIUM CHLORIDE 0.9% 500 ML 500 ML IV ONE (11:00)
[2020-05-02 11:23] VITALS: BP 128/68
--- NOTE | 2020-05-02 15:02 | Progress Note ---
Assessment and Plan Cultures: Blood culture 04/25/2020 no growth today COVID-19 negative A/P: 79-year-old man past medical history diabetes, hypertension, CKD, prostate cancer admitted with shortness of breath. #Bilateral pneumonia: Infiltrate stable from 2 years ago, however may have resolved and then returned or may have chronic infiltrates in the lungs. ? Aspiration pneumonia. His procalcitonin is elevated, however he does have a level of chronic kidney disease, improving. COVID testing is negative. #Elevated d-dimer: improving. ? no DVT, no PE on CTA #JOSE on CKD: Renally dose antibiotics -resolved #Diabetes: tight glycemic control for best outcomes. #Dysphagia. Recs: -Continue ceftriaxone DAY 5 OF 5 -Aspiration precautions/swallow evaluation ok to d/c from ID stand point Adri Sanches MD [facility] ([facility]) Office [phone] Subjective Date of service: 05/02/20 Principal diagnosis: JOSE Interval history: Remains nonverbal, no fever Objective - Exam Narrative Exam: Constitutional: Somnolent, nonverbal on nasal cannula oxygen 4 L Head, Ears, Nose: Normocephalic, atraumatic. External ears, nose normal Eyes: Conjunctivae/corneas clear. No icterus. No ptosis. Neck: Supple, no meningeal signs Cardiovascular: RRR Respiratory: Diminished bilaterally GI: Soft, non-tender Musculoskeletal: no edema, deformities Skin: No rash or abscess Hem/Lymphatic: No palpable cervical or supraclavicular nodes. No lymphangitis Psych: Somnolent Neurological: Somnolent - Constitutional Vitals: Vital Signs Temp Pulse Resp BP Pulse Ox 97.4 F L 100 H 20 128/68 96 05/02/20 10:38 05/02/20 11:22 05/02/20 10:38 05/02/20 11:22 05/02/20 10:38 Temperature -Last 24 Hours Temperature 97.4 F Temperature 99.1 F Temperature 98.6 F Temperature 98.9 F - Labs CBC & Chem 7: 04/29/20 05:38 05/02/20 04:51 Labs: Abnormal lab results 05/01/20 05/02/20 05/02/20 Range/Units 17:02 04:51 12:09 Chloride 109.2 H (98-107) mmol/L Creatinine 0.6 L (0.8-1.3) mg/dL POC Glucose 68 L 142 H (70-105)
== END 2020-05-02 15:21 | DRG 871 ==
LOC: ED 18:05 → 3A 22:13
PROVIDERS: ADMIT Internal Medicine; ATTEND Internal Medicine
PROC: 4A033R1 Measurement of Arterial Saturation, Peripheral, Percutaneous Approach (ICD-10-PCS; principal; 2020-04-25)
DX: A41.9 Sepsis, unspecified organism (principal); J18.9 Pneumonia, unspecified organism; N17.0 Acute kidney failure with tubular necrosis; E43 Unspecified severe protein-calorie malnutrition; E87.0 Hyperosmolality and hypernatremia; I95.9 Hypotension, unspecified; I12.9 Hypertensive chronic kidney disease with stage 1 through stage 4 chronic kidney disease, or unspecified chronic kidney disease; E11.22 Type 2 diabetes mellitus with diabetic chronic kidney disease; N18.2 Chronic kidney disease, stage 2 (mild); R09.02 Hypoxemia; Z20.828 Contact with and (suspected) exposure to other viral communicable diseases; E83.39 Other disorders of phosphorus metabolism; E87.6 Hypokalemia; R13.10 Dysphagia, unspecified; Z85.46 Personal history of malignant neoplasm of prostate; Z68.1 Body mass index [BMI] 19.9 or less, adult; Z71.3 Dietary counseling and surveillance
CPT/HCPCS: 36415; 71045; 71275; 74018; 76770; 80048; 80053; 81001; 82550; 82553; 82570; 82728; 82803; 82947; 82962; 83615; 83880; 84100; 84145; 84156; 84300; 84484; 84520; 85025; 85379; 86140; 87040; 87086; 89050; 93970; 96365; G0378; J0456; J0696; J1644; J7030; J7040; J7050; J7070; Q9967; U0003-CS

== ENCOUNTER 2020-05-10 13:05 | Emergency (ER) | payer MEDICARE, MEDICAID ==
[2020-05-10 14:47] LABS: Basophils % (Auto) 0.2 % (0.0-1.8); Eosinophils % (Auto) 0.2 % (0.0-4.3); Hematocrit 26.8 % (35.5-45.6); Hemoglobin 9.3 gm/dl (11.8-15.2); Lymphocytes # (Auto) 0.6 K/mm3 (1.2-5.4); Lymphocytes % (Auto) 4.9 % (13.4-35.0); Mean Corpuscular HGB Conc 35 % (32-34); Mean Corpuscular Volume 96 fl (84-94); Monocytes % (Auto) 7.6 % (0.0-7.3); Platelet Count 223 K/mm3 (140-440); Red Cell Distribution Width 16.1 % (13.2-15.2)
[2020-05-10 14:59] LABS: Blood Urea Nitrogen 6 mg/dL (9-20); Calcium 8.6 mg/dL (8.4-10.2); Hemolysis Index 0
[2020-05-10 15:12] LABS: BUN/Creatinine Ratio 15
[2020-05-10] MEDS ORDERED: SODIUM CHLORIDE 0.9% 1000 ML 1,000 ML IV ONE (15:22)
[2020-05-10] MEDS ORDERED: cefTRIAXone/NS 1 GM/50 ML 1 GM/50 ML BAG IV ONE (15:24)
[2020-05-10 15:53] LABS: Bilirubin,Urine SM (Negative); Blood,Urine NEG (Negative); Color,Urine Amber (Yellow); Mucus,Urine FEW /HPF; Protein,Urine <15 mg/dL mg/dL (Negative)
[2020-05-10 15:56] LABS: Ictotest,Urine Positive (Negative)
--- NOTE | 2020-05-10 16:30 | XRay Report ---
CHEST 1 VIEW 05/10/2020 4:00 PM INDICATION / CLINICAL INFORMATION: leucocytosis. COMPARISON: CTA chest 05/01/2020 FINDINGS: SUPPORT DEVICES: None. HEART / MEDIASTINUM: No significant abnormality. LUNGS / PLEURA: Stable chronic appearing bilateral interstitial lung disease. No pneumothorax. ADDITIONAL FINDINGS: No significant additional findings. IMPRESSION: 1. No acute findings. No adverse change from prior. Signer Name: Connor Vera MD Signed: 05/10/2020 4:25 PM Workstation Name: [id number]
--- NOTE | 2020-05-10 16:40 | Emergency Department Report ---
ED General Adult HPI - General Chief complaint: Altered Mental Status Stated complaint: DIFFICULITY SWALLOWING X 3 DAYS Time Seen by Provider: 05/10/20 13:17 Source: patient, EMS Mode of arrival: Stretcher Limitations: Altered Mental Status, Physical Limitation - History of Present Illness Initial comments: Patient is a 79-year-old F [place] male with past medical history of dementia diabetes hypertension interstitial disease in his lungs as well as prostate cancer with possible metastases who is presenting with 3 days of inability to swallow. long term staff state that he having a choking sensation when he tries to drink. Patient has a baseline of being nonverbal and altered. He has not had anything to eat or drink in the last 2 days. He did start a subcutaneous IV on his abdomen have been giving gentle hydration in that fashion. Patient was admitted to the hospital last week for some shortness of breath and possible to COVID-19. Patient is COVID test was negative. There was no evidence of PE on CT angiogram. Patient has had some decline in his ability to eat and drink over the last several days. - Related Data Home Medications Medication Instructions Recorded Confirmed Last Taken Tamsulosin [Flomax] 0.4 mg PO QDAY 03/30/18 04/28/20 03/29/18 0.4mg Previous Rx's Medication Instructions Recorded Last Taken Type ALBUTEROL NEB's [Proventil 0.083% 2.5 mg IH Q4HRT PRN nebu 05/01/20 Unknown Rx NEBS] Metoprolol [Lopressor TAB] 12.5 mg PO BID tablet 05/02/20 Unknown Rx Allergies Allergy/AdvReac Type Severity Reaction Status Date / Time No Known Allergies Allergy Verified 04/14/14 11:39 ED Review of Systems ROS: Stated complaint: DIFFICULITY SWALLOWING X 3 DAYS Other details as noted in HPI Comment: All other systems reviewed and negative ED Past Medical Hx - Past Medical History Hx Hypertension: Yes Hx Heart Attack/AMI: No Hx Diabetes: Yes Hx Renal Disease: Yes (Chronic kidney disease stage II.) Hx Seizures: Yes 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) Hx Tuberculosis: No Hx HIV: No (unknown pt confuse / nonverbal) Additional medical history: prostate CA - Social History Smoking Status: Unknown if ever smoked - Medications Home Medications: Home Medications Medication Instructions Recorded Confirmed Last Taken Type Tamsulosin [Flomax] 0.4 mg PO QDAY 03/30/18 04/28/20 03/29/18 History 0.4mg ALBUTEROL NEB's [Proventil 0.083% 2.5 mg IH Q4HRT PRN nebu 05/01/20 Unknown Rx NEBS] Metoprolol [Lopressor TAB] 12.5 mg PO BID tablet 05/02/20 Unknown Rx ED Physical Exam - General Limitations: Altered Mental Status, Physical Limitation General appearance: alert, in no apparent distress, other (non verbal) - Head Head exam: Present: atraumatic, normocephalic - Eye Eye exam: Present: normal appearance, PERRL, EOMI - ENT ENT exam: Present: mucous membranes moist - Neck Neck exam: Present: normal inspection - Respiratory Respiratory exam: Present: normal lung sounds bilaterally, rhonchi. Absent: respiratory distress, wheezes, rales - Cardiovascular Cardiovascular Exam: Present: regular rate, normal rhythm. Absent: systolic murmur, diastolic murmur, rubs, gallop - GI/Abdominal GI/Abdominal exam: Present: soft, normal bowel sounds. Absent: distended, tenderness, guarding, rebound - Rectal Rectal exam: Present: deferred - Extremities Exam Extremities exam: Present: normal inspection - Back Exam Back exam: Present: normal inspection - Neurological Exam Neurological exam: Present: alert, altered - Psychiatric Psychiatric exam: Present: normal affect, normal mood - Skin Skin exam: Present: warm, dry, intact, normal color. Absent: rash ED Course Vital Signs 05/10/20 14:00 Temperature 99 F Pulse Rate 103 H Respiratory 12 Rate Blood Pressure 124/63 [Left] O2 Sat by Pulse 99 Oximetry ED Medical Decision Making - Lab Data Result diagrams: 05/10/20 14:18 05/10/20 14:18 Lab Results 05/10/20 05/10/20 05/10/20 Range/Units 14:18 14:18 15:35 WBC 13.0 H (4.5-11.0) K/mm3 RBC 2.80 L (3.65-5.03) M/mm3 Hgb 9.3 L (11.8-15.2) gm/dl Hct 26.8 L (35.5-45.6) % MCV 96 H (84-94) fl MCH 33 H (28-32) pg MCHC 35 H (32-34) % RDW 16.1 H (13.2-15.2) % Plt Count 223 (140-440) K/mm3 Lymph % (Auto) 4.9 L (13.4-35.0) % [place] % (Auto) 7.6 H (0.0-7.3) % Eos % (Auto) 0.2 (0.0-4.3) % Baso % (Auto) 0.2 (0.0-1.8) % Lymph # (Auto) 0.6 L (1.2-5.4) K/mm3 [place] # (Auto) 1.0 H (0.0-0.8) K/mm3 Eos # (Auto) 0.0 (0.0-0.4) K/mm3 Baso # (Auto) 0.0 (0.0-0.1) K/mm3 Seg Neutrophils % 87.1 H (40.0-70.0) % Seg Neutrophils # 11.3 H (1.8-7.7) K/mm3 Sodium 141 (137-145) mmol/L Potassium 3.3 L (3.6-5.0) mmol/L Chloride 106.2 (98-107) mmol/L Carbon Dioxide 19 L (22-30) mmol/L Anion Gap 19 mmol/L BUN 6 L (9-20) mg/dL Creatinine 0.4 L (0.8-1.3) mg/dL Estimated GFR > 60 ml/min BUN/Creatinine Ratio 15 % Glucose 73 L (75-100) mg/dL Lactic Acid (0.7-2.0) mmol/L Calcium 8.6 (8.4-10.2) mg/dL Urine Color [place] (Yellow) Urine Turbidity Clear (Clear) Urine pH 5.0 (5.0-7.0) Ur Specific [place] 1.014 (1.003-1.030) Urine Protein <15 mg/dl (Negative) mg/dL Urine Glucose (UA) Neg (Negative) mg/dL Urine Ketones 80 (Negative) mg/dL Urine Blood Neg (Negative) Urine Nitrite Neg (Negative) Urine Bilirubin Sm (Negative) Urine Ictotest Positive (Negative) Urine Urobilinogen 4.0 (<2.0) mg/dL Ur Leukocyte Esterase Neg (Negative) Urine WBC (Auto) 2.0 (0.0-6.0) /HPF Urine RBC (Auto) 2.0 (0.0-6.0) /HPF U Epithel Cells (Auto) 2.0 (0-13.0) /HPF Urine Mucus Few /HPF 05/10/20 Range/Units 15:41 WBC (4.5-11.0) K/mm3 RBC (3.65-5.03) M/mm3 Hgb (11.8-15.2) gm/dl Hct (35.5-45.6) % MCV (84-94) fl MCH (28-32) pg MCHC (32-34) % RDW (13.2-15.2) % Plt Count (140-440) K/mm3 Lymph % (Auto) (13.4-35.0) % [place] % (Auto) (0.0-7.3) % Eos % (Auto) (0.0-4.3) % Baso % (Auto) (0.0-1.8) % Lymph # (Auto) (1.2-5.4) K/mm3 [place] # (Auto) (0.0-0.8) K/mm3 Eos # (Auto) (0.0-0.4) K/mm3 Baso # (Auto) (0.0-0.1) K/mm3 Seg Neutrophils % (40.0-70.0) % Seg Neutrophils # (1.8-7.7) K/mm3 Sodium (137-145) mmol/L Potassium (3.6-5.0) mmol/L Chloride (98-107) mmol/L Carbon Dioxide (22-30) mmol/L Anion Gap mmol/L BUN (9-20) mg/dL Creatinine (0.8-1.3) mg/dL Estimated GFR ml/min BUN/Creatinine Ratio % Glucose (75-100) mg/dL Lactic Acid 1.40 (0.7-2.0) mmol/L Calcium (8.4-10.2) mg/dL Urine Color (Yellow) Urine Turbidity (Clear) Urine pH (5.0-7.0) Ur Specific [place] (1.003-1.030) Urine Protein (Negative) mg/dL Urine Glucose (UA) (Negative) mg/dL Urine Ketones (Negative) mg/dL Urine Blood (Negative) Urine Nitrite (Negative) Urine Bilirubin (Negative) Urine Ictotest (Negative) Urine Urobilinogen (<2.0) mg/dL Ur Leukocyte Esterase (Negative) Urine WBC (Auto) (0.0-6.0) /HPF Urine RBC (Auto) (0.0-6.0) /HPF U Epithel Cells (Auto) (0-13.0) /HPF Urine Mucus /HPF - Radiology Data Continue bilateral interstitial disease - Medical Decision Making Patient has slight elevation of his white count and his heart rate was in the 90s prompting sepsis work-up. His urinalysis was negative for infection. Chest x-ray shows no change from previous. Because the patient is decline the patient will have a hospice consult.'s information has been faxed and the patient will be returned back to his assisted. Critical care attestation.: If time is entered above; I have spent that time in minutes in the direct care of this critically ill patient, excluding procedure time. ED Disposition Clinical Impression: Adult failure to thrive syndrome Disposition: DC-01 TO HOME OR SELFCARE Is pt being admited?: No Does the pt Need Aspirin: No Condition: Stable Additional Instructions: Hospice consult has been placed Referrals: HILARIA STILL MD [Primary Care Provider] - 3-5 Days Time of Disposition: 16:40
[2020-05-10 17:52] VITALS: BP 125/69
== END 2020-05-10 17:50 | disposition home or self-care (01) ==
LOC: ED 13:05
DX: R62.7 Adult failure to thrive (principal); I10 Essential (primary) hypertension; E11.9 Type 2 diabetes mellitus without complications; R56.9 Unspecified convulsions; Z68.1 Body mass index [BMI] 19.9 or less, adult; Z79.899 Other long term (current) drug therapy
CPT/HCPCS: 36415; 71045; 80048; 81001; 82140; 85025; 87040; 96365; 99285; J0696; J7030